=== PATIENT | female | born 1960 | race Caucasian/White ===

== ENCOUNTER 2016-05-14 13:28 | Emergency (ER) | payer MEDICARE ==
[2016-04-19 17:05] VITALS: BMI 28.5
[~2016-05-14 13:28] MED LIST: ADVAIR 500/501 DISK INH; ALDACTONE25 MG PO; BUMEX2 MG PO; CARAFATE1 G/10 ML PO; CARDIZEM CD180 MG PO; COLACE100 MG PO; COREG12.5 MG PO; COUMADIN2 MG PO; COUMADIN7.5 MG PO; COZAAR25 MG PO; HUMULIN R100 U/ML SC; HYDROCODONE-APA1 TAB PO; K-DUR20 MEQ PO; LANOXIN125 MCG PO; LASIX40 MG PO; LEVAQUIN750 MG PO; LISINOPRIL2.5 MG PO; LISINOPRIL5 MG PO; LOVENOX80 MG/0.8 SC; MEDROL DOSE PACK4 MG PO; METOLAZONE2.5 MG PO; MIRALAX17 GM PO; MORPHINE SULFAT15 M4 PO; MS CONTIN15 MG PO; PROAIR HFA8.5 GM INH; RISPERDAL1 MG PO; SINGULAIR10 MG PO; SYNTHROID25 MCG PO; SYNTHROID50 MCG PO; TOPROL XL200 MG PO; TOPROL XL25 MG PO; TOPROL XL50 MG PO; XANAX1 MG PO; ZESTRIL10 MG PO; ZOCOR20 MG PO; Zaroxolyn PO
[2016-05-14 15:02] LABS: BASOPHILS 0.5 % (0.0-2.0); EOSINOPHILS 5.3 % (0-7); HEMATOCRIT 45.8 % (36.0-48.0); HEMOGLOBIN 15.1 g/dL (12-16); IMMATURE GRANULOCYTES 0.3 % (0-5); LYMPHOCYTES 20.8 % (15-50); MCH 31.3 pg (26.0-34.0); MCV 94.8 fL (80.0-100.0); MEAN PLATELET VOLUME 11.2 fL (7.4-10.4); MONOCYTES 13.4 % (2-11); NEUTROPHILS 59.7 % (40-80); PLATELET COUNT 313 10x3/uL (130-400); RBC 4.83 10x6/uL (4.00-5.40); RDW 14.5 % (11.5-14.5); WBC 12.9 10x3/uL (4.8-10.8)
[2016-05-14 15:36] LABS: ALBUMIN 3.9 g/dL (3.4-5.0); ANION GAP 14.2 mmol/L (8-16); BILIRUBIN - TOTAL 0.39 mg/dL (0.2-1.3); CALCIUM 9.8 mg/dL (8.5-10.1); CARBON DIOXIDE 27.1 mmol/L (21.0-32.0); CREATININE - SERUM 0.9 mg/dL (0.6-1.3); POTASSIUM - SERUM 4.3 mmol/L (3.5-5.1); PROTEIN - SERUM 8.7 g/dL (6.4-8.2)
[2016-05-14 15:38] LABS: APTT 31.8 SECONDS (22.8-39.4); INR 1.2 (0.85-1.17)
[2016-05-14 17:34] LABS: AMYLASE - SERUM 47 U/L (25-115); LIPASE 205 U/L (73-393)
[2016-05-14 20:03] LABS: APPEARANCE CLEAR (CLEAR); COLOR YELLOW (YELLOW); SPECIFIC GRAVITY 1.015 (1.005-1.020)
[2016-05-14 20:04] LABS: BILIRUBIN NEGATIVE (NEGATIVE); GLUCOSE NEGATIVE (NEGATIVE); KETONE NEGATIVE (NEGATIVE); LEUKOCYTE ESTERASE NEGATIVE (NEGATIVE); NITRITE NEGATIVE (NEGATIVE); PROTEIN NEGATIVE (NEGATIVE); UROBILINOGEN NORMAL (NORMAL)
[2016-05-14 20:15] LABS: UDS - AMPHET POSITIVE QUAL (NEGATIVE); UDS - BARB NEGATIVE QUAL (NEGATIVE); UDS - BENZO POSITIVE QUAL (NEGATIVE); UDS - COCAINE NEGATIVE QUAL (NEGATIVE); UDS - METH NEGATIVE QUAL (NEGATIVE); UDS - OPIATE POSITIVE QUAL (NEGATIVE); UDS - PCP NEGATIVE QUAL (NEGATIVE); UDS - THC NEGATIVE QUAL (NEGATIVE)
== END 2016-05-14 22:08 | disposition home or self-care (01) ==
LOC: D.ER 13:28
PROVIDERS: Family Medicine
DX: R10.9 Unspecified abdominal pain (principal); I50.9 Heart failure, unspecified; I10 Essential (primary) hypertension; E23.2 Diabetes insipidus; Z95.0 Presence of cardiac pacemaker

== ENCOUNTER 2016-05-23 09:13 | Day surgery (SDC) | payer MEDICARE ==
[~2016-05-23] VITALS: Ht 170.2 cm; Wt 81.8 kg
[2016-05-23] MEDS ORDERED: COUMADIN7.5 MG (09:57)
[2016-05-23] MEDS ORDERED: COUMADIN10 MG (09:57)
[2016-05-23] MEDS ORDERED: LOVENOX INJ100 MG/ML SC (09:57)
[2016-05-23] MEDS ORDERED: TIROSINT100 MCG PO (10:00)
[2016-05-23] MEDS ORDERED: GLUCOTROL ER2.5 MG PO (10:02)
[2016-05-23 10:07] VITALS: BP 165/86; Ht 170.2 cm; Wt 81.8 kg
[2016-05-23] MEDS ORDERED: GLYBURIDE2.5 MG (10:13)
[2016-05-23 10:27] LABS: HEMATOCRIT 44.4 % (36.0-48.0); HEMOGLOBIN 14.8 g/dL (12-16); MCH 31.4 pg (26.0-34.0); MCHC 33.3 g/dL (31.0-37.0); MCV 94.1 fL (80.0-100.0); MEAN PLATELET VOLUME 11.7 fL (7.4-10.4); RBC 4.72 10x6/uL (4.00-5.40); RDW 14.4 % (11.5-14.5); WBC 13.5 10x3/uL (4.8-10.8)
[2016-05-23 10:37] LABS: APTT 52.3 SECONDS (22.8-39.4); INR 1.08 (0.85-1.17); PROTIME 13.9 SECONDS (11.6-15.0)
[2016-05-23 10:38] LABS: ANION GAP 12.4 mmol/L (8-16); CALCIUM 9.1 mg/dL (8.5-10.1); CARBON DIOXIDE 29.4 mmol/L (21.0-32.0); CREATININE - SERUM 0.9 mg/dL (0.6-1.3); POTASSIUM - SERUM 3.8 mmol/L (3.5-5.1)
--- NOTE | 2016-05-23 10:44 | NUR ---
1045 PATIENT COMPLAINS OF PAIN LOWER ABDOMEN AND BACK, GIVEN [id number] PO. NO ACUTE DISTRESS NOTED
--- NOTE | 2016-05-23 14:49 | NUR ---
1445 BACK FROM COLONOSCOPY. SLEEPY AND ROUSES. RESP EVEN AND NONLABORED. DENIES PAIN AND NAUSEA. PASSED SOME AIR.
--- NOTE | 2016-05-23 15:21 | NUR ---
1520 TOLERATED FULL LIQUIDS. UP TO THE BR WITH ASSISTANCE. VOIDED AND BACK TO BED.
--- NOTE | 2016-05-23 18:43 | NUR ---
1531 PORT FLUSHED WITH SALINE AND HEPARIN FLUSH DCD HOUSTON NEEDLE AND WENT OVER DISCHARGE INSTRUCTIONS AND VERBALLY UNDERSTANDS.
--- NOTE | 2016-05-23 18:44 | NUR ---
1550 RIDE HERE AND HOME VIA W/C WITH FRIEND.
--- NOTE | 2016-05-23 18:45 | NUR ---
1535 IV SITE OOZED PRESSURE APPLIED AND BLEEDING STOPPED.BANDAGE APPLIED TO LT CHEST SITE.
--- NOTE | 2016-07-04 11:24 | OP ---
PATIENT NAME: SAE BARBOSA MEDICAL RECORD: [id number] :62 LOCATION:[facility] ADMISSION DATE: SURGEON: KAREN TSE MD DATE OF OPERATION: 05/23/2016 PROCEDURE: Colonoscopy with polyp ablation. SCOPE: Olympus video colonoscope. MEDICATIONS: Per TIVA anesthesia. The reason for anesthesia is chronic obstructive pulmonary disease. The patient, I believe, continues to smoke, coronary artery disease with cardiac arrhythmias and congestive heart failure, diabetes mellitus, hypertension, liver disease, mitral valve prolapse with mitral regurgitation, pacemaker placement, use of Coumadin for as above, hypothyroidism. The patient will have a colonoscopy as she has been having some abdominal pain as well as nevin hematochezia. FINDINGS: Informed consent was given. The patient was made comfortable with the above medications. After reaching an adequate level of sedation by slow IV push, the patient was placed on her left side. The rectal exam revealed good sphincter tone, no fissures or fistulas were appreciated. No external skin tags were seen. The colonoscope was advanced to the cecum where the ileocecal valve and appendiceal orifice were identified. On withdrawal of the scope, mucosa was carefully inspected. The cecum was carefully explored and was found to be normal. On withdrawal of the scope, the patient had very mild left-sided diverticulosis without diverticulitis. She also had 1 cm polyp in the distal rectal area, which was ablated. On retroflexion and final withdrawal of the scope, hemorrhoids were observed, which is the cause of the patient's bleeding, exacerbated by blood thinners. Of note, she has significant adhesions due to multiple abdominal surgeries adding to the difficulty of this procedure. The scope was then withdrawn. IMPRESSION: 1. Adhesions adding to the difficulty of this procedure. 2. Distal rectal polyp ablated. 3. Very mild left-sided diverticulosis without diverticulitis. 4. Internal hemorrhoids, which is the cause of the patient's bleeding. PLAN: 1. No anti-inflammatory drugs please for 14 days. 2. High fiber diet. 3. The patient should go ahead and resume her Coumadin. 4. Of note, if the hemorrhoids are bothering the patient, she can buy some low-dose luxi-ous-tjblaib cortisone cream and apply b.i.d. TRANSINT:[id number] Voice Confirmation ID: [id number] DOCUMENT ID: [id number] OPERATIVE REPORT [id number] SAE BARBOSA BRENDA MD at 1124 CC: FABIAN VIERA MD and SMITH VALLEJO MD [id number] DICTATION DATE: 05/23/16 1438 METAL DEALER: 05/23/16 1503 [facility] 05/23/16 [place] [id number] [place] [id number]
== END 2016-05-23 15:50 | disposition home or self-care (01) ==
LOC: D.OPS 09:13
PROVIDERS: Anesthesiology
DX: K62.1 Rectal polyp (principal); K57.30 Diverticulosis of large intestine without perforation or abscess without bleeding; K64.8 Other hemorrhoids; J44.9 Chronic obstructive pulmonary disease, unspecified; F17.200 Nicotine dependence, unspecified, uncomplicated; I25.10 Atherosclerotic heart disease of native coronary artery without angina pectoris; I11.0 Hypertensive heart disease with heart failure; I50.9 Heart failure, unspecified; E11.9 Type 2 diabetes mellitus without complications; E03.9 Hypothyroidism, unspecified; K76.9 Liver disease, unspecified; I34.1 Nonrheumatic mitral (valve) prolapse; I34.0 Nonrheumatic mitral (valve) insufficiency; Z95.0 Presence of cardiac pacemaker; Z79.01 Long term (current) use of anticoagulants; Z79.899 Other long term (current) drug therapy

== ENCOUNTER → 2016-06-08 12:39 | Outpatient (CLI) | payer MEDICARE ==
[2016-05-23 10:07] VITALS: BMI 28.2
[~2016-06-08 12:39] MED LIST changes: +COUMADIN10 MG; +COUMADIN7.5 MG; +GLUCOTROL ER2.5 MG PO; +GLYBURIDE2.5 MG; +LOVENOX INJ100 MG/ML SC; +LOVENOX30 MG/0.3 SC; +TIROSINT100 MCG PO
[2016-06-08 13:21] LABS: INR 2.87 (0.85-1.17); PROTIME 30.3 SECONDS (11.6-15.0)
== END | disposition home or self-care (01) ==
LOC: D.LAB 09:30
PROVIDERS: Internal Medicine Interventional Cardiology
DX: Z95.2 Presence of prosthetic heart valve (principal)

== ENCOUNTER 2016-07-06 13:52 | Outpatient (CLI) | payer MEDICARE ==
[~2016-07-06] VITALS: Ht 171.4 cm; Wt 81.4 kg
[~2016-07-06 13:52] MED LIST changes: -LOVENOX30 MG/0.3 SC
[2016-07-06 14:26] VITALS: BP 152/75; Ht 171.4 cm; Wt 81.4 kg
--- NOTE | 2016-07-06 14:40 | NUR ---
1415 HERE FOR PORT FLUSH RT CHEST INFUSAPORT ACCESSED BY LORNA NAVA WITH STERILE TECHNIQU 1 STICK 20 GAUGE 1 INCH. GOOD BLOOD RETURN FLUSHED WITH SALINE AND HEPARIN FLUSH THAN CATHETER REMOVED TIP INTACT, BANDAID APPLIED.
--- NOTE | 2016-07-06 14:41 | NUR ---
1440 DISCHARGED TO HOME.
--- NOTE | 2016-07-06 14:54 | NUR ---
1445 AMBULATED SELF TO HOME.
== END 2016-07-06 14:45 | disposition home or self-care (01) ==
LOC: D.OPS 13:52
DX: Z09 Encounter for follow-up examination after completed treatment for conditions other than malignant neoplasm (principal); I73.9 Peripheral vascular disease, unspecified

== ENCOUNTER 2016-07-23 06:32 | Day surgery (SDC) | payer MEDICARE ==
[~2016-07-23] VITALS: Ht 171.4 cm; Wt 81.8 kg
[2016-07-23] MEDS ORDERED: LOVENOX30 MG/0.3 SC (07:43)
[2016-07-23 07:46] VITALS: BP 125/84; Ht 171.4 cm; Wt 81.8 kg
[2016-07-23 07:54] LABS: BASOPHILS 0.8 % (0.0-2.0); EOSINOPHILS 4.6 % (0-7); HEMATOCRIT 43.2 % (36.0-48.0); HEMOGLOBIN 14.6 g/dL (12-16); IMMATURE GRANULOCYTES 0.4 % (0-5); LYMPHOCYTES 28.9 % (15-50); MCHC 33.8 g/dL (31.0-37.0); MCV 91.7 fL (80.0-100.0); MEAN PLATELET VOLUME 11.8 fL (7.4-10.4); NEUTROPHILS 52.3 % (40-80); PLATELET COUNT 328 10x3/uL (130-400); RBC 4.71 10x6/uL (4.00-5.40); WBC 15.1 10x3/uL (4.8-10.8)
[2016-07-23 08:02] LABS: ANION GAP 12.8 mmol/L (8-16); APTT 37.8 SECONDS (22.8-39.4); CARBON DIOXIDE 28.8 mmol/L (21.0-32.0); CREATININE - SERUM 1.2 mg/dL (0.6-1.3); INR 1.04 (0.85-1.17); POTASSIUM - SERUM 3.6 mmol/L (3.5-5.1); PROTIME 13.5 SECONDS (11.6-15.0)
--- NOTE | 2016-07-23 09:43 | NUR ---
RIGHT SUBCLAVIAN PORT FLUSHED WITH SALINE AND HEPARIN PER PROTOCOL, HOUSTON NEEDLE DC'D FROM PORT, BANDAID PLACED. PATIENT DRESSED IN PERSONAL CLOTHING, AWAITING TRANSPORTATION FOR DC, PATIENT STATES A FRIEND IS ON HER WAY
--- NOTE | 2016-07-23 10:05 | NUR ---
PATIENT DISCHARGED HOME VIA WHEELCHAIR TO PRIVATE VEHICLE WITH FRIEND WITH DC ISNTRUCTIONS IN HAND
--- NOTE | 2016-07-31 12:04 | OP ---
PATIENT NAME: SEA BARBOSA MEDICAL RECORD: [id number] :62 LOCATION:D.OPS ADMISSION DATE: SURGEON: REBECA SWEENEY DO DATE OF OPERATION: 07/23/2016 PROCEDURE: EGD with biopsies. ENDOSCOPIST: Rebeca Sweeney DO. SCOPE: Olympus video gastroscope. MEDICATIONS: Propofol 200 mg and lidocaine 100 mg IV per anesthesia. INDICATIONS FOR PROCEDURE: Dysphagia and history of gastric ulcers. FINDINGS: Informed consent was given. The patient was made comfortable with the above medications. After the patient was adequately sedated, she was placed on the left side. The olympus video gastroscope was placed through the mouth under direct visualization and advanced to the second portion of the duodenum. The upper, middle and distal thirds of the esophagus appeared normal. At the GE junction, there was some mild LA class A reflux induced esophagitis. Biopsies were taken of this esophagitis as there is a questionable history of Rodas's esophagus. The scope was then advanced into the stomach and retroflexed to view the cardia where there was a diminutive sliding hiatal hernia present. Scope was then advanced down to the antrum and prepyloric region where there was evidence of gastritis with a few erosions and streaky erythematous sites. Random biopsies were taken and sent for histology. Scope was advanced through the pylorus into the duodenum where there was evidence of duodenitis involving the bulb and second portion of the duodenum. Multiple random biopsies were taken and sent for histology. Scope was then withdrawn back into the stomach and up to the esophagus where the GE junction was looked at closely again. There was no evidence of stenosis or stricture. No dilatation was performed. The scope was withdrawn from the patient. The patient tolerated the procedure well and there were no complications. ESTIMATED BLOOD LOSS: Less than 5 cc. IMPRESSION: 1. LA class A reflux induced esophagitis at the GE junction. Biopsies taken. 2. Gastritis of the antrum and prepyloric region. Biopsies taken. 3. Duodenitis of the bulb and second portion of the duodenum. Biopsies taken. 4. Diminutive sliding hiatal hernia. PLAN AND RECOMMENDATIONS: 1. Continue Carafate as she has previously been taking. 2. Add Protonix 40 mg daily times 30 days. 3. Follow up in the GI clinic in 4-6 weeks. 4. If her dysphagia continues, would recommend a manometry study to evaluate for other causes of dysphagia outside of strictures and stenoses. TRANSINT:[id number] Voice Confirmation ID: [id number] DOCUMENT ID: [id number] OPERATIVE REPORT [id number] SAE BARBOSA NATHAN A DO at 1204 CC: [id number] DICTATION DATE: 07/23/16 0832 CORE EXTRUDER: 07/23/[address] [facility] 07/23/[address] [address]
== END 2016-07-23 10:05 | disposition home or self-care (01) ==
LOC: D.OPS 06:32
PROVIDERS: Anesthesiology
DX: R13.10 Dysphagia, unspecified (principal); K21.0 Gastro-esophageal reflux disease with esophagitis; K44.9 Diaphragmatic hernia without obstruction or gangrene; K29.80 Duodenitis without bleeding; K29.50 Unspecified chronic gastritis without bleeding

== ENCOUNTER 2016-08-30 11:19 | Outpatient (CLI) | payer MEDICARE ==
[~2016-08-30 11:19] MED LIST changes: +LOVENOX30 MG/0.3 SC
== END 2016-08-30 11:35 | disposition home or self-care (01) ==
LOC: D.OPS 11:19
DX: Z45.2 Encounter for adjustment and management of vascular access device (principal); Z53.9 Procedure and treatment not carried out, unspecified reason; I73.9 Peripheral vascular disease, unspecified

== ENCOUNTER → 2016-09-06 08:36 | Outpatient (CLI) | payer MEDICARE ==
[2016-09-06 11:32] VITALS: BP 136/66; Ht 171.4 cm
--- NOTE | 2016-09-06 11:36 | NUR ---
1110-UNSUCCESSFUL ATTEMPT TO ACCESS PORT TIMES TWO. PORT ACCESSED BY TIFFANIE TONG RN, BRISK BLOOD RETURN, FLUSH COMPLETE WITH SALINE AND HEPARIN. TOLERATED PROCEDURE WELL.
--- NOTE | 2016-09-10 14:16 | EC ---
PATIENT:SAE BARBOSA DATE OF SERVICE: 09/06/16 SEX: F MEDICAL RECORD: [id number] DATE OF : 62 LOCATION:D.RT AGE OF PATIENT: 56 ADMISSION DATE: 09/06/16 REFERRING PHYSICIAN: INTERPRETING PHYSICIAN: BLOSSOM PAPPAS M.D. ECHOCARDIOGRAM REPORT ECHO CHARGES 4 ECHO COMPLETE CLINICAL DIAGNOSIS: PULMONARY HTN HX OF MVR,AFIB,PACER,CHF,COPD ECHOCARDIOGRAPHIC MEASUREMENTS (adult normal given) AC root (d.<3.7cm) 3.9 LV Septum d (<1.2 cm> 1.4 Valve Excursion 1.8 LV Septum (systole) 1.6 Left Atria (s.<4.0cm> 4.5 LVPW d(<1.2cm) 1.6 RV (d.<2.3cm) 4.3 LVPW (sytole) 1.8 LV diastole(<5.6CM) 5.8 MV E-F(>70mm/sec) LV systole 3.8 LVOT Diameter 1.5 MV exc.(>10mm) 1.9 Est.ejection fraction (50-75%) Pericardial Effusion N DOPPLER: LVIT A 159 E LA RVSP 48 LVOT 117 AOP1/2T 432 Asc. Ao 232 RVOT 105 RA PA 126 AV Gradient Peak 21.52 AV Mean 10.10 AV Area 1.1 MV Gradient Peak 18.34 MV Mean 5.03 MV Area COMMENTS: Pipe Buffer: Tyson ROSA Photographic Equipment Mechanic:2 Dr. Pappas TAPE# PACS DATE OF SERVICE: 09/06/2016 Echocardiogram Report REFERRING PHYSICIAN: Catalino Gil MD. INDICATION: Pulmonary hypertension. DESCRIPTION: Left ventricle demonstrates left ventricular hypertrophy. No regional wall motion abnormalities are seen. Estimated ejection fraction is in ECHOCARDIOGRAM REPORT [id number] SAE BARBOSA SAMUEL the order of 50% to 55%. Mitral valve is mechanical. There is no evidence of any stenosis or regurgitation. Left atrium is moderately dilated. The aortic valve leaflets are thickened. Peak gradient across the valve is 21 mmHg. There is mild to moderate insufficiency seen as well. Right ventricle is moderately dilated. Tricuspid valve is structurally normal. There is mild to moderate regurgitation seen. Right ventricular systolic pressure is elevated at 48 mmHg. There is no pericardial effusion seen. IMPRESSION: 1. Left ventricular hypertrophy with preserved ejection of 50% to 55%. 2. Normally functioning prosthetic mitral valve. 3. Mild aortic stenosis with mild to moderate insufficiency. 4. Mild tricuspid regurgitation with elevated pulmonary pressures. TRANSINT:[id number] Voice Confirmation ID: [id number] DOCUMENT ID: [id number] BLOSSOM PAPPAS M.D. at 1416 CC: [id number] DICTATION DATE: 09/07/16 1016 BAGGAGE CLERK: 09/08/16 0208 [facility] CLI 09/06/16 [place] [id number] [place] [address]
== END | disposition home or self-care (01) ==
LOC: D.RT 08:36
DX: I73.9 Peripheral vascular disease, unspecified (principal); Z45.2 Encounter for adjustment and management of vascular access device

== ENCOUNTER 2016-10-29 10:57 | Outpatient (CLI) | payer MEDICARE ==
--- NOTE | 2016-10-29 14:26 | NUR ---
1255-PATIENT PRESENTS TO DESK. NEEDS THIS DONE QUICKLY SHE HAS ANOTHER APPOINTMENT. 1300-RIGHT INFUSAPORT ACCESSED WITH 20G 1 INCH HOUSTON NEEDLE WITH MUCH DIFFICULTY. BLOOD TINGED RETURN. PORT FEELS LIKE IT HAS TURNED SIDEWAYS UPON PALPATION. RECOMMEND FOLLOW UP WITH SURGEON. 1320-DISCHARGE INSTRUCTIONS REVIEWED AND D/C AMBULATORY PER REQUEST.
== END 2016-10-29 13:20 | disposition home or self-care (01) ==
LOC: D.OPS 10:57 → D.CT 10:57 → D.OPS 13:20
DX: Z45.2 Encounter for adjustment and management of vascular access device (principal); R94.2 Abnormal results of pulmonary function studies

== ENCOUNTER 2016-12-17 15:14 | Observation (INO) | payer MEDICARE, MEDICAID ==
[~2016-12-17] VITALS: Ht 171.4 cm; Wt 89.9 kg
--- NOTE | ~2016-12-17 | HEMODYNAMI ---
PATIENT:SAE BARBOSA MEDICAL RECORD: [id number] : 62 LOCATION:[address] ADMISSION DATE: 12/17/16 Generatedon:12/18/20168:32 Patient name: SAE BARBOSA Patient #: [id number] SSN: DO B: 1960 Date of study: 12/18/2016 Page: Of Hemodynamic Procedure Report Patient Data Patient Demographics Procedure consent was obtained First Name: SAE Gender: Female Last Name: CHELSEY : 1960 [facility] Initial: SAMUEL Age: 56 year(s) Patient #: [id number] Race: Additional ID: [id number] Contact details [address]: [address] [place] [address] State: [place] City: [place] Zip code: [address] Past Medical History Allergies Allergen Reaction Date Comments Reported Penicillins 06/10/2014 Admission Admission Data Admission Date: 12/17/2016 Admission Time: 15:14 Room #: [facility] Procedure Procedure Types Cath Procedure Diagnostic Procedure Cardioversion Procedure Description Procedure Date Procedure Date: 12/18/2016 Procedure Start Time: 8:25 Procedure End Time: 8:30 Procedure Staff Name Function Jovan Linder MD Performing Physician Margareth Chowdhury RN Nurse Hernesto Porras RT Monitor Krystina Figueroa RT Seo Intern Procedure Medications Medication Administration Route Dosage Oxygen NC 6 l/min Refer to Anesthesia Notes for Sedation Medications Hemodynamics Rest Heart Rate: 74 (bpm) Snapshots Pre Cath Intra NCS Post Cath Vital Signs Time Heart Resp SPO2 NIBP (mmHg) Rhythm Pain Sedation Rate (ipm) (%) Status Level (bpm) 7:58:27 71 16 95 133/66(104) NSR 0 (11) 10(A) , No pain 8:02:43 69 19 96 121/68(102) NSR 0 (11) 10(A) , No pain 8:06:52 73 20 98 127/68(84) NSR 0 (11) 10(A) , No pain 8:17:46 73 19 99 136/72(95) NSR 0 (11) 10(A) , No pain 8:21:55 69 19 98 136/65(95) NSR 0 (11) 10(A) , No pain 8:26:10 70 18 98 132/68(94) NSR 0 (11) 10(A) , No pain 8:30:22 71 9 94 106/62(82) NSR 0 (11) 10(A) , No pain Medications Time Medication Route Dose Verified Delivered Reason Notes Effectivene ss by by 8:02:19 Oxygen NC 6 Jovan Aldana Per l/min Kailash Linder MD physician 8:02:25 Refer to Jovan Aldana Anesthesia Kailash Linder MD Notes for Sedation Medications Procedure Log Time Note 7:56:23 Diagnostic Cath Status : Elective 7:56:45 Time tracking: Regular hours 7:56:50 Plan of Care:Hemodynamics will remain stable., Cardiac rhythm will remain stable., Comfort level will be maintained., Respiratory function will remain adequate., Patient/ family verbilizes understanding of procedure., Procedure tolerated without complication., Recovers from procedure without complications.. 7:57:06 Patient received from Med II to CCL 2 Alert and oriented. Tansferred to table in Supine position. 7:57:10 Warm blankets applied, and ginger hugger turned on for patient comfort. 7:57:10 Correct patient and procedure confirmed by team. 7:57:13 Signed procedure consent form obtained from patient. 7:57:14 ECG and BP/O2 sat monitors applied to patient. 7:57:23 Vital chart was started 7:57:24 Baseline sample Acquired. 7:57:58 Rhythm: atrial fibrillation 7:58:03 Full Disclosure recording started 7:58:53 ----Pre-sedation anethsthesia assessment.---- 7:59:05 Previous problem with sedation/anesthesia? No ? 7:59:07 Snore? Yes 7:59:09 Sleep apnea? No 7:59:14 Deviated septum? No 7:59:16 Opens mouth fully? Yes 7:59:19 Sticks out tongue? Yes 8:02:19 Oxygen 6 l/min NC was administered by Jovan Linder MD; Per physician; 8:02:25 Refer to Anesthesia Notes for Sedation Medications was administered by Jovan Linder MD; ; 8:04:27 Alarms reviewed by Chito Gamboa 8:05:58 Quick combo pads placed on patients chest and back. 8:06:22 DR. RICHARD ARRIVED AND IN ROOM 8:07:15 DR. LINDER IN ROOM 1 8:24:43 Physician arrived 8:24:43 --------ALL STOP TIME OUT------ 8:24:44 Final Timeout: patient, procedure, and site verified with staff and physician. All members of the team are in agreement. 8:25:04 Physical assessment completed. ASA score P 2 - A patient with mild systemic disease as per Jovan Linder MD. 8:25:10 Sedation plan: TIVA Propofol 8:25:17 Procedure started. 8:27:10 CHARGED TO 250 8:27:12 Shock delivered. 8:28:30 Patient cardioverted to sinus rhythm . 8:28:56 Procedure ended.(Physican Out) 8:30:10 Post-procedure physical assessment completed. ASA score P 2 - A patient with mild systemic disease as per Jovan Linder MD. 8:30:43 Procedure ended. 8:30:43 Full Disclosure recording stopped 8:30:48 Vital chart was stopped 8:31:18 End room use (Document Last) Signature Audit Butler Stage Time Signature Unsigned Intra-Procedure 12/18/2016 Hernesto Porras 8:32:15 AM RT(R) (CV) Signatures Monitor : Hernesto Porras RT Signature : Date : Time : [facility] [address] [facility] [place] [address]
[~2016-12-17 15:14] MED LIST changes: -COUMADIN7.5 MG; -GLYBURIDE2.5 MG; +GLYBURIDE2.5 MG PO
--- NOTE | 2016-12-17 15:48 | NUR ---
RECIVED PT FROM DR GUTIÉRREZ OFFICE TO ROOM 2125. RN FOR ADMIT ASSESSMENT.
[2016-12-17 16:00] VITALS: BP 171/85
--- NOTE | 2016-12-17 16:01 | NUR ---
IP ACCESSED WITH 1" NEEDLE. LINE IS PATENT. BLOOD RETURN NOTED.
[2016-12-17 16:02] VITALS: BP 171/84; BMI 30.6
[2016-12-17 16:45] LABS: BASOPHILS 0.3 % (0-2); EOSINOPHILS 3.7 % (0-7); HEMATOCRIT 37.4 % (36.0-48.0); HEMOGLOBIN 12.1 g/dL (12-16); IMMATURE GRANULOCYTES 0.3 % (0-5); LYMPHOCYTES 22.6 % (15-50); MCH 29.7 pg (26.0-34.0); MCHC 32.4 g/dL (31.0-37.0); MCV 91.9 fL (80.0-100.0); MEAN PLATELET VOLUME 11.1 fL (7.4-10.4); MONOCYTES 12.9 % (2-11); NEUTROPHILS 60.2 % (40-80); PLATELET COUNT 350 10x3/uL (130-400); RBC 4.07 10x6/uL (4.00-5.40); RDW 14.9 % (11.5-14.5); WBC 14.1 10x3/uL (4.8-10.8)
[2016-12-17 17:00] LABS: INR 1.94 (0.85-1.17); PROTIME 22.2 SECONDS (11.6-15.0)
--- NOTE | 2016-12-17 17:49 | NUR ---
WITHOUT DISTRESS NOTED AT THIS TIME.
[2016-12-17 17:50] LABS: ANION GAP 12.9 mmol/L (8-16); CARBON DIOXIDE 26.1 mmol/L (21.0-32.0)
[2016-12-17 19:00] VITALS: BP 137/73
--- NOTE | 2016-12-17 19:24 | NUR ---
PT SITTING IN BED. PT STATES " I THINK IM GOING TO OVERDOSE. I TOOK MY ZANAX AND NORCO AT THE SAME TIME, AND I NEVER DO THAT." INSTRUCTED PT TO CALL IF SHE STARTS FEELING ANY WORSE. WILL CONTINUE TO MONITOR
[2016-12-18] VITALS: BP 121/68
--- NOTE | 2016-12-18 03:28 | NUR ---
PT RESTING IN BED WITH EYES CLOSED. RESPS EVEN/NONLABORED. CARDIZEM DRIP AT 5ML/HR INFUSING. CURRENTLY CAF 70'S. WILL CONTINUE TO MONITOR.
[2016-12-18 04:00] VITALS: BP 111/67
--- NOTE | 2016-12-18 07:20 | NUR ---
ASSESSMENT DONE. DENIES NEEDS
--- NOTE | 2016-12-18 07:42 | NUR ---
TO CONFERENCE ASSISTANT PER BED
--- NOTE | 2016-12-18 08:55 | NUR ---
RETURN FROM GRADES 9 THROUGH 12 TEACHER. CARDIOVERSION DONE
--- NOTE | 2016-12-18 10:10 | NUR ---
RESTS IN BED WITHOUT NEEDS VOICED. CALL LIGHT IN REACH. WILL MONITOR.
[2016-12-18 12:04] VITALS: BP 95/55
[2016-12-18 13:06] VITALS: Ht 171.4 cm; Wt 89.9 kg
[2016-12-18 15:59] VITALS: BP 114/57
--- NOTE | 2016-12-18 17:57 | NUR ---
WITHOUT CHANGES OR DISTRESS NOTED AT THIS TIME. DENIES NEEDS.
--- NOTE | 2016-12-18 19:47 | NUR ---
RECEIVED REPORT, WILL ASSUME CARE OF PT, SITTING ON SIDE OF BED, ASKING FOR ANIXTY MEDS, WILL GIVE ORDER, CALL LIGHT IN REACH, WILL CONTINUE PLAN OF CARE
[2016-12-18 20:00] VITALS: BP 116/51
--- NOTE | 2016-12-19 00:50 | NUR ---
PT RESITNG IN BED WITH NO DISTRESS. CPOC.
[2016-12-19 04:00] VITALS: BP 105/49
--- NOTE | 2016-12-19 07:43 | NUR ---
PT SITTING UP IN BED SLEEPING NO S/S DISTRESS NOTED RR EVEN AND UNLABORED. WILL CONT TO MONITOR
[2016-12-19 08:00] VITALS: BP 127/61
--- NOTE | 2016-12-19 10:34 | NUR ---
REMOVED PT PORT ACCESS THIS AM. FLOOR POLICY TO RESITE EVERY SATURDAY. REMOVED WITH TIP INTACT. WENT TO RESITE PORT ACCESS AND UNSUCCESSFULL. CALLED [employer] FOR ANOTHER ACCESS KIT AND WILL ASK ANOTHER NURSE ON [facility] TO ATTEMPT.
[2016-12-19] MEDS ORDERED: BETAPACE 80 MG80 MG PO (11:22)
--- NOTE | 2016-12-19 11:24 | NUR ---
DR VALLEJO IS DC PT HOME. WILL NOT REACCESS PORT.
[2016-12-19] MEDS ORDERED: NITROSTAT0.4 MG SL (11:27)
[2016-12-19 11:46] VITALS: BP 116/58
--- NOTE | 2016-12-19 12:01 | NUR ---
WENT OVER DC PAPERWORK WITH PT PT VERBALIZES UNDERSTANDING DC TELE AND RETURNED TO PHOTOENGRAVING PRINTER. PT WAS GIVEN SCRIPTS FOR MEDICATIONS. PT IS WAITING ON HER FRIEND TO PICK HER UP FROM [facility]. PT TO ALERT STAFF WHEN SHE IS HERE.
--- NOTE | 2016-12-19 16:42 | NUR ---
RIDE HERE DC HOME VIA .
--- NOTE | 2016-12-21 09:41 | OP ---
PATIENT NAME: SAE BARBOSA MEDICAL RECORD: [id number] :62 LOCATION:D.M2 D.2125 ADMISSION DATE:12/17/16 SURGEON: SMITH VALLEJO MD DATE OF OPERATION: 12/18/2016 PROCEDURE: DC cardioversion. INDICATION: Atrial fibrillation. PROCEDURE IN DETAIL: IV conscious sedation was performed per anesthesia. Continuous heart rate, O2 saturation, blood pressure monitoring were all undertaken, all of which remains stable. She received 1 shock restoring sinus rhythm. OVERALL IMPRESSION: Successful direct current cardioversion from atrial fibrillation to sinus rhythm. TRANSINT:[id number] Voice Confirmation ID: [id number] DOCUMENT ID: [id number] SMITH VALLEJO MD at 0941 CC: [id number] DICTATION DATE: 12/18/16 0843 STENOTYPIST: 12/18/16 1046 DIS IN 12/19/16 [facility] [address] [place] [address]
--- NOTE | 2016-12-21 09:41 | DS ---
PATIENT:SAE BARBOSA :62 MEDICAL RECORD: [id number] DISCHARGE SUMMARY ADMISSION DATE: 12/17/16 DISCHARGE DATE: 12/19/16 DISCHARGE DIAGNOSES: 1. Shortness of breath. 2. Atrial fibrillation. 3. Chronic obstructive pulmonary disease. 4. Coronary artery disease. 5. Hypertension. 6. Hyperlipidemia. HOSPITAL COURSE: Mrs. Barbosa does not present with anginal symptomatology. She presents with shortness of breath, found to be in atrial fibrillation with rapid ventricular response, started on sotalol therapy, underwent DC cardioversion as well as IV diuresis. Her congestive heart failure symptomatology cleared. She was discharged home with discontinuing her digoxin; the addition of sotalol to her medical regimen. We will follow up with [facility] in 1 month. TRANSINT:[id number] Voice Confirmation ID: [id number] DOCUMENT ID: [id number] SMITH VALLEJO MD at 0941 CC: [id number] DICTATION DATE: 12/19/16 1057 SIGNAL REPAIRER: 12/19/163 DIS IN 12/19/16 [facility] [address] [place] [address]
== END 2016-12-19 16:43 | disposition home or self-care (01) ==
LOC: OBSVTIME 15:14 → D.M2 15:14
PROVIDERS: ADMIT Internal Medicine Interventional Cardiology
DX: I48.91 Unspecified atrial fibrillation (principal); I25.10 Atherosclerotic heart disease of native coronary artery without angina pectoris; J44.9 Chronic obstructive pulmonary disease, unspecified; E78.5 Hyperlipidemia, unspecified; I10 Essential (primary) hypertension

== ENCOUNTER 2017-02-06 07:29 | Outpatient (CLI) | payer MEDICARE, MEDICAID ==
--- NOTE | ~2017-02-06 | HEMODYNAMI ---
PATIENT:SAE BARBOSA MEDICAL RECORD: [id number] : 62 LOCATION:[facility] ADMISSION DATE: 02/06/17 Generatedon:02/06/20179:21 Patient name: SAE BARBOSA Patient #: [id number] SSN: DO B: 1960 Date of study: 02/06/2017 Page: Of Hemodynamic Procedure Report Patient Data Patient Demographics Procedure consent was obtained First Name: SAE Gender: Female Last Name: CHELSEY : 1960 [facility] Initial: SAMUEL Age: 56 year(s) Patient #: [id number] Race: Additional ID: [id number] Contact details [address]: [address] [place] [address] State: [place] City: [place] Zip code: [address] Past Medical History Allergies Allergen Reaction Date Comments Reported Penicillins 06/10/2014 Other allergy 02/06/2017 N Admission Admission Data Admission Date: 02/06/2017 Admission Time: 7:29 Height (in.): 68 BSA: 2 (m2) Height (cm.): 172.72 BMI: 28.89 (kg/m2) Weight (lbs.): 190 Weight (kg.): 86.18 Lab Results Lab Result Date: 02/06/2017 Lab Result Time: 0:00 Biochemistry Name Units Result Min Max BUN mg/dl 30 --(----)-* 7 18 Creatinine mg/dl 1.2 --(---*)-- 0.6 1.3 Coagulation Name Units Result Min Max INR units 0.99 --(-*--)-- 0.85 1.17 PT sec 12.9 --(-*--)-- 11.6 15 Procedure Procedure Types Cath Procedure Diagnostic Procedure C Coronaries only Miscellaneous Procedures Moderate Sedation up to 15 minutes Procedure Description Procedure Date Procedure Date: 02/06/2017 Procedure Start Time: 9:07 Procedure End Time: 9:14 Procedure Staff Name Function Jovan Linder MD Performing Physician Andrez Castro RT Scrub Bradley Blanton RN Nurse Krystina Figueroa RT Monitor Procedure Data Cath Procedure Fluoroscopy Diagnostic fluoroscopy Total fluoroscopy Time: 0.9 time: 0.9 min min Diagnostic fluoroscopy Total fluoroscopy dose: 374 dose: 374 mGy mGy Contrast Material Contrast Material Type Amount (ml) Isovue 300 42 Entry Location Entry Primary Successful Side Size Upsize Upsize Entry Closure Succes sful Closure Location (Fr) 1 (Fr) 2 (Fr) Remarks Device Remarks Femoral Right 5 Fr Exoseal artery Estimated blood loss: 10 ml Diagnostic catheters Device Type Used For End Catheter Placement Cordis 5Fr JL 4.0 Procedure Catheter (MP) Cordis 5Fr 3DRC Catheter Procedure (MP) Procedure Complications No complications Procedure Medications Medication Administration Route Dosage Oxygen NC 2 l/min Heparin Flush Bag added to field 2 bags (1000units/500ml NS) 0.9% NaCl I.V. 100 ml/hr Fentanyl I.V. 100 mcg Versed I.V. 2 mg Fentanyl I.V. 50 mcg Versed I.V. 1 mg Fentanyl I.V. 50 mcg Versed I.V. 1 mg Hemodynamics Rest BSA: 2 (m2) O2 Consumption: Estimated: 218.02 (ml/min) O2 Consumption indexed: Estimated:109.01 (ml/min/m) Heart Rate: 104 (bpm) Snapshots Pre Cath Intra NCS Post Cath Vital Signs Time Heart Resp SPO2 NIBP (mmHg) Rhythm Pain Sedation Rate (ipm) (%) Status Level (bpm) 8:49:43 94 16 92 120/79(97) NSR 0 (11) 10(A) , No pain 8:53:46 107 16 92 116/87(104) NSR 0 (11) 10(A) , No pain 8:57:58 112 18 89 115/66(86) NSR 0 (11) 10(A) , No pain 9:02:02 111 18 90 109/73(95) NSR 0 (11) 10(A) , No pain 9:06:08 102 18 92 116/77(94) NSR 0 (11) 10(A) , No pain 9:10:14 105 18 94 108/75(89) NSR 0 (11) 9(A) , No pain 9:14:21 98 17 92 123/70(108) NSR 0 (11) 9(A) , No pain 9:16:22 87 17 94 117/86(105) NSR 0 (11) 9(A) , No pain Medications Time Medication Route Dose Verified Delivered Reason Notes Effect iveness by by 9:07:03 Oxygen NC 2 Jovan Bradley Per l/min Kailash Blanton RN physician 9:07:11 Heparin Flush added 2 Jovan Bradley used for Bag to bags Kailash Blanton attorney (1000units/500ml field NS) 9:07:19 0.9% NaCl I.V. 100 Jovan Bradley Per ml/hr Kailash Blanton RN physician 9:07:28 Fentanyl I.V. 100 Jovan Bradley for roshan Blanton RN sedation 9:07:34 Versed I.V. 2 mg Jovan Bradley for Kailash Blanton RN sedation 9:09:38 Fentanyl I.V. 50 Jovan Bradley for roshan Blanton RN sedation 9:09:43 Versed I.V. 1 mg Jovan Batistay for Kailash Blanton RN sedation 9:11:07 Fentanyl I.V. 50 Jovan Bradley for roshan Blanton RN sedation 9:11:11 Versed I.V. 1 mg Jovan Bradley for Kailash Blanton RN sedation Procedure Log Time Note 8:30:39 Andrez Castro RT(R) sent for patient. Start room use. 8:45:50 Patient Weight : 86.18 lbs 8:45:56 Patient Height : 172.72 inches 8:47:01 Lab Result : BUN 30 mg/dl 8:47:01 Lab Result : PT 12.9 sec 8:47:01 Lab Result : Creatinine 1.2 mg/dl 8:47:01 Lab Result : INR 0.99 units 8:47:37 Diagnostic Cath status Elective 8:47:41 Time tracking: Regular hours 8:47:47 Plan of Care:Hemodynamics will remain stable., Cardiac rhythm will remain stable., Comfort level will be maintained., Respiratory function will remain adequate., Patient/ family verbilizes understanding of procedure., Procedure tolerated without complication., Recovers from procedure without complications.. 8:48:32 Patient received from Pre/Post Procedure Room to [facility] 2 Alert and oriented. Tansferred to table in Supine position. 8:48:34 Warm blankets applied, and ginger hugger turned on for patient comfort. 8:48:38 Correct patient and procedure confirmed by team. 8:48:41 Signed procedure consent form obtained from patient. 8:48:42 ECG and BP/O2 sat monitors applied to patient. 8:48:43 Vital chart was started 8:48:45 Baseline sample Acquired. 8:48:52 Rhythm: sinus rhythm 8:48:53 Full Disclosure recording started 8:49:07 H&P Date Dictated: 01/28/2017 Within 30 days and on chart., H&P Addendum completed by physician on day of procedure. (MUST COMPLETE FOR ALL OUTPATIENTS). 8:49:09 Pre-procedure instructions explained to patient. 8:49:18 Family in waiting room. 8:49:20 Patient NPO since Midnight. 8:49:41 Patient allergic to Other allergyPCN 8:49:45 Is the patient allergic to Iodine/contrast media? No. 8:49:52 Was the patient premedicated? Yes 8:49:54 Is patient on blood thinner?Yes 8:49:59 ACC The patient was administered the following blood thiners within the last 24 hours: ACCLovenox 8:50:35 Patient diabetic? Yes. 8:50:37 If diabetic: On Metformin? No 8:50:41 Snore? Yes 8:50:43 Sleep apnea? Yes 8:50:51 Airway obstruction? Yes COPD 8:50:54 Dentures? No ? 8:51:00 Patient pain scale 0/10 ?. 8:51:12 IV patent on arrival in right forearm with 0.9% NaCl at KVO. 8:51:19 Lab results completed and on chart. 8:51:24 Right groin area was prepped with chlora-prep and draped in sterile fashion 8:51:25 Alarms reviewed by R. N. 8:51:26 Sharps counted by scrub and verified by R.N. 9:02:33 Physician paged 9:06:28 Physician arrived 9::29 --------ALL STOP TIME OUT------ 9:06:29 Final Timeout: patient, procedure, and site verified with staff and physician. All members of the team are in agreement. 9:06:31 Right groin site verified by team. 9:06:35 Physical assessment completed. ASA score P 2 - A patient with mild systemic disease as per Jovan Linder MD. 9:06:39 Sedation plan: IV Moderate Sedation Versed, Fentanyl 9:06:41 Zero performed for pressure channel P1 9:06:58 Use device set Femoral Dx 9:07:01 Procedure started. 9:07:03 Oxygen 2 l/min NC was administered by Bradley Blanton RN; Per physician; 9:07:11 Heparin Flush Bag (1000units/500ml NS) 2 bags added to field was administered by Bradley Blanton RN; used for procedure; 9:07:19 0.9% NaCl 100 ml/hr I.V. was administered by Bradley Blanton RN; Per physician; 9:07:22 Local anesthetic to right femoral artery with Lidocaine 2% by Jovan Linder MD.INITIAL ACCESS ONLY 9:07:28 Fentanyl 100 mcg I.V. was administered by Bradley Blanton RN; for sedation; 9:07:34 Versed 2 mg I.V. was administered by Bradley Blanton RN; for sedation; 9:09:38 Fentanyl 50 mcg I.V. was administered by Bradley Blanton RN; for sedation; 9:09:40 A 5 Fr sheath was inserted into the Right Femoral artery 9::43 Versed 1 mg I.V. was administered by Bradley Blanton RN; for sedation; 9:09:43 Acist Syringe opened to sterile field. 9:09:43 Bag Decanter opened to sterile field. 9:09:44 Medline Cath Pack opened to sterile field. 9:09:44 Terumo 5Fr [place] Sheath opened to sterile field. 9:09:45 St Martin 260cm J .035 wire opened to sterile field. 9:09:46 Acist Hand Control opened to sterile field. 9:09:46 Acist Manifold opened to sterile field. 9:09:47 Diagnostic Infinity 5Fr Multipack catheter opened to sterile field. 9:09:48 Tegaderm 4 x 4 opened to sterile field. 9:09:58 A Cordis 5Fr JL 4.0 Catheter (MP) was advanced over the wire and used for Procedure. 9:10:02 LCA angiography performed. 9:11:07 Fentanyl 50 mcg I.V. was administered by Bradley Blanton RN; for sedation; 9:11:11 Versed 1 mg I.V. was administered by Bradley Blanton RN; for sedation; 9:11:12 Catheter removed. 9:11:22 A Cordis 5Fr 3DRC Catheter (MP) was advanced over the wire and used for Procedure. 9:11:36 RCA angiography performed. 9:11:55 Catheter removed. 9:12:20 Cordis 5Fr Exoseal opened to sterile field. 9:12:37 Sheath removed intact; hemostasis achieved with Exoseal to the Right Femoral artery. 9:12:40 Procedure ended.(Physican Out) 9:13:23 Fluoroscopy time 00.90 minutes. 9:13:30 Fluoroscopy dose: 374 mGy 9:13:30 Flurop Dose total: 374 9:13:36 Contrast amount:Isovue 300 42ml. 9:13:38 Sharps counted by scrub and verified by R.N. 9:13:39 Insertion/operative site no bleeding no hematoma. 9:13:42 Post-op/insertion site Right Femoral artery dressed using a 4 x 4 and Tegaderm. 9:13:45 Post right femoral artery:stable 9:13:53 Post-procedure physical assessment completed. ASA score P 2 - A patient with mild systemic disease as per Jovan Linder MD. 9:13:56 Post procedure rhythm: unchanged. 9:13:59 Estimated blood loss: 10 ml 9:14:00 Post procedure instruction explained to patient.Patient verbalizes understanding. 9:14:06 Procedure and supply charges have been captured, reviewed, submitted and are correct. 9:14:35 Procedure Complication : No complications 9:14:37 Vital chart was stopped 9:14:37 See physician's report for complete and final results. 9:14:43 Report given to Pre/Post Procedure Room. 9:14:46 Patient transfered to Pre/Post Procedure Room with Stretcher. 9:14:49 Procedure ended. 9:14:49 Full Disclosure recording stopped 9:14:53 End room use (Document Last) 9:17:23 Procedure type changed to Cath procedure, Diagnostic procedure, LHC, Coronaries only, Miscellaneous Procedures, Moderate Sedation up to 15 minutes Device Usage Item Name Manufacture Quantity Catalog Hospital Part Current Minimal Lo t# / Number Charge Number Stock Stock Serial# Code Acist Acist 1 [id number] [id number] 540653 286434 20 Syringe Medical Systems Inc Bag Microtek 1 2002S 041817 79231 458358 5 Decanter Medical Inc. Medline Cardinal 1 [id number] 485045 83076 135166 5 Cath Pack Health Terumo 5Fr Terumo 1 [id number] 601472 368004 127596 [address] [place] [address] [facility] Martin 1 817373 882296 415648 162813 30 260cm J .035 wire Acist Hand Acist 1 63230 860303 412017 510035 5 Control Medical Systems Inc Acist Acist 1 62740 749796 744072 479883 5 Manifold Medical Systems Inc Diagnostic Cardinal 1 [id number] 268526 66912 489480 30 Gamma 2 Robotics Health 5Fr Multipack catheter Tegaderm 4 3M 1 1626W 758159 966962 390710 5 x 4 Cordis 5Fr Cardinal 1 705255 5 JL 4.0 Health Catheter (MP) Cordis 5Fr Cardinal 1 [id number] 5 3DRC Health Catheter (MP) Cordis 5Fr Cardinal 1 EX500 997506 421285 590572 10 Core Audio Technology Signature Audit [place] Stage Time Signature Unsigned Intra-Procedure 02/06/2017 Krystina Figueroa 9:20:50 AM RT(R) Signatures Monitor : Krystina Figueroa Signature : RT Date : Time : [place] [id number] [facility] [place] [address]
[~2017-02-06 07:29] MED LIST changes: +BETAPACE 80 MG80 MG PO; +NITROSTAT0.4 MG SL
[2017-02-06] MEDS ORDERED: LOVENOX80 MG/0.8 SC (07:50)
[2017-02-06] MEDS ORDERED: METOLAZONE2.5 MG PO (07:52)
[2017-02-06] MEDS ORDERED: LEVOTHYROXINE100 MCG PO (07:52)
[2017-02-06] MEDS ORDERED: EFFEXOR XR150 MG PO (07:53)
[2017-02-06] MEDS ORDERED: SOMA350 MG PO (07:53)
[2017-02-06 08:02] VITALS: BP 170/73; BMI 29.3
[2017-02-06 08:08] LABS: BASOPHILS 0.6 % (0-2); EOSINOPHILS 5.1 % (0-7); HEMATOCRIT 45.5 % (36.0-48.0); HEMOGLOBIN 15.3 g/dL (12-16); IMMATURE GRANULOCYTES 0.2 % (0-5); LYMPHOCYTES 30.7 % (15-50); MCH 29.7 pg (26.0-34.0); MCHC 33.6 g/dL (31.0-37.0); MCV 88.3 fL (80.0-100.0); MEAN PLATELET VOLUME 11.3 fL (7.4-10.4); MONOCYTES 15.6 % (2-11); NEUTROPHILS 47.8 % (40-80); PLATELET COUNT 286 10x3/uL (130-400); RBC 5.15 10x6/uL (4.00-5.40); RDW 14.7 % (11.5-14.5); WBC 12.1 10x3/uL (4.8-10.8)
[2017-02-06 08:22] LABS: ANION GAP 8.9 mmol/L (8-16); CALCIUM 9.9 mg/dL (8.5-10.1); CREATININE - SERUM 1.2 mg/dL (0.6-1.3); POTASSIUM - SERUM 3.9 mmol/L (3.5-5.1)
[2017-02-06 08:36] LABS: INR 0.99 (0.85-1.17); PROTIME 12.9 SECONDS (11.6-15.0)
--- NOTE | 2017-02-06 09:45 | NUR ---
2L NC, NO RESP DISTRESS NOTED. RIGHT GROIN 5F EXOSEAL CDI, NO BLEEDING OR HEMATOMA NOTED. NO C/O PAIN OR NAUSEA. VSS. INSTRUCTED PT TO KEEP HEAD FLAT ON PILLOW AND RIGHT LEG STRAIGHT. CALL LIGHT WITHIN REACH.
--- NOTE | 2017-02-06 10:42 | NUR ---
1030 ASSUMED CARE, REPORT RECEIVED FROM GILBERTO ANGEL RN. PATIENT RESTING, LAYING FLAT. ALL VITALS WNL. NSR RATE 87 WNO C/O CHEST PAIN. PULSES PALP X 4. R GROIN 5F EXOSEAL C/D/I WITH NO HEMATOMA OR BLEEDING.
--- NOTE | 2017-02-06 10:58 | NUR ---
HOB ELEVATED, ROOM AIR. ALL VITALS WNL. EATING TURKEY SANDWICH WILL MONITOR GROIN FOR BLEEDING.
--- NOTE | 2017-02-06 11:33 | NUR ---
REMOVED ACCESS FROM R PORT, COVERED WITH 2X2 AND TEGADERM. DISCUSSED D/C INSTRUCTIONS WITH PATIENT. DR. VALLEJO AT BEDSIDE...PER YONI SEE IN CLINIC IN 3-4 MONTHS. APPT MADE FOR JUNE. WHEELED OUT VIA WHEELCHAIR BY CATH TEAM.
--- NOTE | 2017-02-08 13:09 | OP ---
PATIENT NAME: SAE BARBOSA MEDICAL RECORD: [id number] :62 LOCATION:D.CAT ADMISSION DATE: SURGEON: SMITH VALLEJO MD DATE OF OPERATION: 02/06/2017 PROCEDURES: Selective coronary angiography. INDICATION: Chest pain compatible with angina. PROCEDURE IN DETAIL: After informed consent was obtained and after detailed explanation of risks, benefits as well as alternative therapies, the patient elected to proceed with angiogram. The right femoral area was prepped and draped in normal sterile fashion. The right femoral artery was cannulated via modified Seldinger technique with placement of 5-Albanian sheath. All catheters exchanged through this sheath. FINDINGS: There was no left ventriculogram performed secondary to mechanical aortic valve. SELECTIVE CORONARY ANGIOGRAPHY: Left main, left anterior descending, left circumflex, right coronary artery are all smooth-walled vessels with no angiographic evidence of coronary artery disease. OVERALL IMPRESSION: No significant coronary artery disease is present. Chest pain is noncardiac in etiology. TRANSINT:[id number] Voice Confirmation ID: [id number] DOCUMENT ID: [id number] SMITH VALLEJO MD at 1309 CC: [id number] DICTATION DATE: 02/06/17 0923 NIGHT CLUB MANAGER: 02/06/17 1137 DEP CLI 02/06/17 [place] [id number] [place] [address]
== END 2017-02-06 11:34 | disposition home or self-care (01) ==
LOC: D.CATH 07:29
PROVIDERS: Internal Medicine Interventional Cardiology
DX: I05.9 Rheumatic mitral valve disease, unspecified (principal); I48.0 Paroxysmal atrial fibrillation; I10 Essential (primary) hypertension; Z95.0 Presence of cardiac pacemaker; R94.30 Abnormal result of cardiovascular function study, unspecified; R06.02 Shortness of breath; F17.200 Nicotine dependence, unspecified, uncomplicated; Z01.812 Encounter for preprocedural laboratory examination

== ENCOUNTER 2017-03-27 10:59 | Outpatient (CLI) | payer MEDICARE, MEDICAID ==
[~2017-03-27 10:59] MED LIST changes: +EFFEXOR XR150 MG PO; +LEVOTHYROXINE100 MCG PO; +SOMA350 MG PO
[2017-03-27 11:59] VITALS: Ht 171.4 cm
== END 2017-03-27 12:15 ==
LOC: D.OPS 10:59
DX: I73.9 Peripheral vascular disease, unspecified (principal)

== ENCOUNTER 2017-06-24 13:16 | Outpatient (CLI) | payer MEDICARE, MEDICAID ==
[~2017-06-24] VITALS: Ht 177.8 cm; Wt 86.4 kg
[2017-06-24 15:09] VITALS: Ht 177.8 cm; Wt 86.4 kg
== END 2017-06-24 15:15 | disposition home or self-care (01) ==
LOC: D.MAMMO 13:16
DX: Z12.31 Encounter for screening mammogram for malignant neoplasm of breast (principal)

== ENCOUNTER → 2017-07-17 14:59 | Outpatient (CLI) | payer MEDICARE, MEDICAID ==
[2017-06-24 15:09] VITALS: BMI 27.3
[~2017-07-17 14:59] MED LIST changes: +COUMADIN5 MG PO; +LANTUS INSULIN10 ML SC
== END | disposition home or self-care (01) ==
LOC: D.CT 14:59
DX: R94.2 Abnormal results of pulmonary function studies (principal)

== ENCOUNTER 2017-08-19 05:33 | Day surgery (SDC) | payer MEDICARE, MEDICAID ==
[~2017-08-19] VITALS: Ht 177.8 cm; Wt 86.4 kg
--- NOTE | ~2017-08-19 | OP ---
PATIENT NAME: SAE BARBOSA MEDICAL RECORD: [id number] :62 LOCATION:[facility] ADMISSION DATE: SURGEON: REBECA KENNEDY DO DATE OF OPERATION: 08/19/2017 PROCEDURE: EGD with biopsies. 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 This was indicated on her last EGD on July 232016. She has also had continued dysphagia, which sounds to be oropharyngeal in nature. SCOPE: Olympus video gastroscope. MEDICATIONS: Propofol IV per anesthesia. Please see anesthesia report. ESTIMATED BLOOD LOSS: Minimal. COMPLICATIONS: None. FINDINGS: Informed consent was given. The patient was made comfortable with the above medication. After reaching an adequate level of sedation by slow IV push, the patient was placed on her left side. The endoscope was advanced through the mouth under direct visualization to the second portion of the duodenum. The upper, middle, and lower thirds of the esophagus appeared normal. At the GE junction, there was some evidence of LA class A reflux-induced esophagitis. Due to the history of incipient Rodas's mucosa on her last EGD, some cold forceps biopsies were taken around the GE junction Z line. The endoscope was advanced beyond the GE junction into the stomach and retroflexed to view the cardia, where there was a small sliding hiatal hernia present. Throughout the entire stomach, there were patchy areas of gastritis with appearances consistent with some atrophy, a coarsened appearance, erythema, and some granularity. Random biopsies were taken to submit for histology and to rule out H. pylori. There were a few very superficial gastric ulcers which looked like they could be related to medications. The endoscope was advanced beyond the pylorus into the duodenum where the bulb, first portion, and second portion of the duodenum appeared normal. The endoscope was then withdrawn from the patient. The patient tolerated the procedure well and there were no complications. On a side note, I did also biopsy her mid esophagus to rule out the presence of eosinophilic esophagitis due to her continued complaints of dysphagia. IMPRESSION: 1. LA class A reflux induced esophagitis, cold forceps biopsies taken to exclude Rodas esophagus. 2. Small sliding hiatal hernia. 3. Gastritis. 4. Few superficial gastric ulcers without bleeding stigmata. PLAN AND RECOMMENDATIONS: 1. Discharge home when recovery parameters are met. 2. Continue current medications including Protonix 40 mg daily and Carafate p.r.n. Could also consider adding Zantac or Pepcid in the evening for another mechanism of action and better around the clock coverage. 3. Recommend modified barium swallow regarding the continued oropharyngeal dysphagia. If this is normal, an esophageal manometry study could be OPERATIVE REPORT [id number] SAE BARBOSA considered. 4. Due to the patient's lower digestive symptom complaints including constipation, gas, and bloating, I will provide her with a prescription for Linzess 145 mcg daily. 5. Follow up in GI clinic as needed. We will follow up on biopsy results and results of oropharyngeal dysphagia, modified barium swallow study. TRANSINT:[id number] Voice Confirmation ID: [id number] DOCUMENT ID: [id number] REBECA KENNEDY DO at 1524 CC: [id number] DICTATION DATE: 08/19/17817 DIRECTOR OF DISTANCE LEARNING: 08/19/[address] [facility] 08/19/17 [place] [address] [place] [address]
[~2017-08-19 05:33] MED LIST changes: -COUMADIN5 MG PO; -LANTUS INSULIN10 ML SC
[2017-08-19 06:12] LABS: BASOPHILS 0.7 % (0-2); EOSINOPHILS 4.9 % (0-7); HEMATOCRIT 47.4 % (36.0-48.0); HEMOGLOBIN 16.1 g/dL (12-16); IMMATURE GRANULOCYTES 0.3 % (0-5); MCH 31.4 pg (26.0-34.0); MCV 92.4 fL (80.0-100.0); MONOCYTES 15.3 % (2-11); NEUTROPHILS 55.8 % (40-80); PLATELET COUNT 281 10x3/uL (130-400); RBC 5.13 10x6/uL (4.00-5.40); RDW 14.4 % (11.5-14.5); WBC 15.8 10x3/uL (4.8-10.8)
[2017-08-19] MEDS ORDERED: COUMADIN5 MG PO (06:18)
[2017-08-19 06:19] LABS: INR 1.08 (0.85-1.17); PROTIME 13.6 SECONDS (11.6-15.0)
[2017-08-19 06:20] LABS: APTT 36.8 SECONDS (22.8-39.4)
[2017-08-19 06:23] LABS: ANION GAP 11.9 mmol/L (8-16); CALCIUM 10.1 mg/dL (8.5-10.1); CARBON DIOXIDE 31.9 mmol/L (21.0-32.0); CREATININE - SERUM 1.6 mg/dL (0.6-1.3); POTASSIUM - SERUM 3.8 mmol/L (3.5-5.1)
[2017-08-19] MEDS ORDERED: LANTUS INSULIN10 ML SC (06:31)
[2017-08-19] MEDS ORDERED: BETAPACE 80 MG80 MG PO (06:32)
[2017-08-19 06:46] VITALS: BP 106/61; Ht 177.8 cm; Wt 86.4 kg
== END 2017-08-19 09:20 | disposition home or self-care (01) ==
LOC: D.OPS 05:33
PROVIDERS: Anesthesiology
DX: R13.10 Dysphagia, unspecified (principal); K21.0 Gastro-esophageal reflux disease with esophagitis; K29.70 Gastritis, unspecified, without bleeding; K44.9 Diaphragmatic hernia without obstruction or gangrene; K25.9 Gastric ulcer, unspecified as acute or chronic, without hemorrhage or perforation; J45.909 Unspecified asthma, uncomplicated; E11.9 Type 2 diabetes mellitus without complications; E03.9 Hypothyroidism, unspecified; J44.9 Chronic obstructive pulmonary disease, unspecified; Z01.812 Encounter for preprocedural laboratory examination

== ENCOUNTER 2018-01-07 12:05 | Outpatient (CLI) | payer MEDICARE, MEDICAID ==
[~2018-01-07] VITALS: Ht 171.4 cm; Wt 85.0 kg
[~2018-01-07 12:05] MED LIST changes: +COUMADIN5 MG PO; +LANTUS INSULIN10 ML SC
[2018-01-07 12:49] VITALS: BP 129/82; Ht 171.4 cm; Wt 85.0 kg
== END 2018-01-07 13:15 | disposition home or self-care (01) ==
LOC: D.OPS 12:05
DX: Z45.2 Encounter for adjustment and management of vascular access device (principal); Z01.812 Encounter for preprocedural laboratory examination

== ENCOUNTER → 2018-02-05 13:59 | Outpatient (CLI) | payer MEDICARE, MEDICAID ==
[2018-01-07 12:49] VITALS: BMI 28.9
== END | disposition home or self-care (01) ==
LOC: D.CT 13:59
DX: R94.2 Abnormal results of pulmonary function studies (principal)

== ENCOUNTER → 2018-06-12 11:30 | Day surgery (SDC) | payer MEDICARE, MEDICAID ==
[2018-01-07 12:49] VITALS: BMI 28.9
== END | disposition home or self-care (01) ==
LOC: D.OPS 11:30
DX: I87.2 Venous insufficiency (chronic) (peripheral) (principal); Z01.812 Encounter for preprocedural laboratory examination

== ENCOUNTER 2018-10-10 12:35 | Outpatient (CLI) | payer MEDICARE, MEDICAID ==
[2018-10-10 13:05] VITALS: BP 111/69; BMI 27.5
== END 2018-10-10 13:21 | disposition home or self-care (01) ==
LOC: D.OPS 12:35
PROVIDERS: ATTEND Family Medicine
DX: I87.9 Disorder of vein, unspecified (principal)

== ENCOUNTER 2019-07-03 09:00 | Outpatient (CLI) | payer MEDICARE, MEDICAID | END 2019-07-03 10:00 | disposition home or self-care (01) | LOC: D.MAMMO 09:00 | PROVIDERS: ATTEND Family Medicine | DX: Z12.31 Encounter for screening mammogram for malignant neoplasm of breast (principal) ==

== ENCOUNTER 2019-07-06 23:42 | Emergency (ER) | payer MEDICARE, MEDICAID ==
[2018-10-10 13:05] VITALS: Ht 171.4 cm; Wt 81.8 kg
[~2019-07-06] VITALS: Ht 171.4 cm; Wt 81.8 kg
[2019-07-07 00:24] LABS: APTT 27.9 SECONDS (22.8-39.4); INR 1.13 (0.85-1.17); PROTIME 14.5 SECONDS (11.6-15.0)
[2019-07-07 00:27] LABS: BASOPHILS 0.5 % (0-2); EOSINOPHILS 6.7 % (0-7); HEMATOCRIT 37.2 % (36.0-48.0); IMMATURE GRANULOCYTES 0.4 % (0-5); LYMPHOCYTES 23.6 % (15-50); MCH 29.7 pg (26.0-34.0); MCHC 32.3 g/dL (31.0-37.0); MCV 92.1 fL (80.0-100.0); MEAN PLATELET VOLUME 11.2 fL (7.4-10.4); MONOCYTES 13.5 % (2-11); NEUTROPHILS 55.3 % (40-80); PLATELET COUNT 325 10x3/uL (130-400); RBC 4.04 10x6/uL (4.00-5.40); RDW 15.9 % (11.5-14.5)
[2019-07-07 00:30] LABS: CALC OSMOLALITY 276 mosm/kg (275-300); CARBON DIOXIDE 30.2 mmol/L (21.0-32.0); CHLORIDE - SERUM 100 mmol/L (98-107); CREATININE - SERUM 1.2 mg/dL (0.6-1.3); GLUCOSE 201 mg/dL (74-106); POTASSIUM - SERUM 3.8 mmol/L (3.5-5.1); SODIUM 134 mmol/L (136-145); UREA NITROGEN 22 mg/dL (7-18); eGFR NON AFRICAN AMERICAN 49 mL/min (90-120)
[2019-07-07 00:40] LABS: ALBUMIN 3.1 g/dL (3.4-5.0); ALKALINE PHOSPHATASE 103 U/L (30-120); ALT (SGPT) 31 U/L (10-68); BILIRUBIN - TOTAL 0.21 mg/dL (0.2-1.3); CKMB 1.1 U/L (0.0-3.6); CREATINE KINASE 106 UL (21-215); MAGNESIUM - SERUM 1.7 mg/dL (1.8-2.4); PROTEIN - SERUM 7.4 g/dL (6.4-8.2); TROPONIN-I 0.039 ng/mL (0.000-0.060)
[2019-07-07 04:50] VITALS: BP 105/60
== END 2019-07-07 04:50 | disposition home or self-care (01) ==
LOC: D.ER 23:42
PROVIDERS: Family Medicine
DX: S20.219A Contusion of unspecified front wall of thorax, initial encounter (principal); W01.198A Fall on same level from slipping, tripping and stumbling with subsequent striking against other object, initial encounter; Y93.9 Activity, unspecified; Y92.9 Unspecified place or not applicable; J44.9 Chronic obstructive pulmonary disease, unspecified; Z95.0 Presence of cardiac pacemaker; I10 Essential (primary) hypertension; I48.91 Unspecified atrial fibrillation; Z95.1 Presence of aortocoronary bypass graft; E11.40 Type 2 diabetes mellitus with diabetic neuropathy, unspecified; E07.9 Disorder of thyroid, unspecified; Z72.0 Tobacco use; Z79.4 Long term (current) use of insulin; Z79.84 Long term (current) use of oral hypoglycemic drugs; K21.9 Gastro-esophageal reflux disease without esophagitis

== ENCOUNTER 2019-10-22 18:21 | Inpatient (IN) | payer MEDICAID ==
[~2019-10-22] VITALS: Ht 171.4 cm; Wt 81.4 kg
--- NOTE | 2019-10-22 18:40 | NUR ---
URINE SENT TO THE LAB.
[2019-10-22 19:04] LABS: BILIRUBIN NEGATIVE (NEGATIVE); GLUCOSE 250 mg/dL (NEGATIVE); KETONE NEGATIVE (NEGATIVE); NITRITE NEGATIVE (NEGATIVE); UROBILINOGEN NORMAL (NORMAL)
--- NOTE | 2019-10-22 19:05 | NUR ---
REPORT TO ERNESTO AMES.
[2019-10-22 19:41] LABS: HEMATOCRIT 41.6 % (36.0-48.0); HEMOGLOBIN 13.3 g/dL (12-16); MCV 93.7 fL (80.0-100.0); MEAN PLATELET VOLUME 11.6 fL (7.4-10.4); PLATELET COUNT 270 10x3/uL (130-400); RBC 4.44 10x6/uL (4.00-5.40); WBC 21.5 10x3/uL (4.8-10.8)
[2019-10-22 19:49] LABS: CALC OSMOLALITY 277 mosm/kg (275-300); CALCIUM 9.2 mg/dL (8.5-10.1); CARBON DIOXIDE 31.2 mmol/L (21.0-32.0); CHLORIDE - SERUM 99 mmol/L (98-107); CREATININE - SERUM 1.6 mg/dL (0.6-1.3); GLUCOSE 227 mg/dL (74-106); POTASSIUM - SERUM 3.9 mmol/L (3.5-5.1); SODIUM 134 mmol/L (136-145); UREA NITROGEN 22 mg/dL (7-18); eGFR NON AFRICAN AMERICAN 35 mL/min (90-120)
[2019-10-22 19:57] LABS: ALBUMIN 3.2 g/dL (3.4-5.0); ALKALINE PHOSPHATASE 92 U/L (30-120); ALT (SGPT) 39 U/L (10-68); AMYLASE - SERUM 48 U/L (25-115); BILIRUBIN - TOTAL 0.43 mg/dL (0.2-1.3); LIPASE 307 U/L (73-393); PROTEIN - SERUM 7.8 g/dL (6.4-8.2)
[2019-10-22 20:00] VITALS: BP 122/59
[2019-10-22 20:06] LABS: TROPONIN-I < 0.017 ng/mL (0.000-0.060)
[2019-10-22 20:07] LABS: EOSINOPHILS 2 % (0-7); LYMPHOCYTES 13 % (15-50); MONOCYTES 10 % (2-11); NEUTROPHILS 75 % (40-80); PLATELET ESTIMATE NORMAL
[2019-10-22 21:25] VITALS: BP 129/76
--- NOTE | 2019-10-22 22:05 | NUR ---
EXTREME ITCHING AFTER ROCEPHIN STARTED STOPPED LINE FLUSHED EDP NOTIFIED AND BENADRYL GIVEN
--- NOTE | 2019-10-22 22:33 | NUR ---
ADDED ROCEPHIN TO ALLERGY LIST
[2019-10-22 23:36] VITALS: BP 88/42; BMI 27.6
[2019-10-23 03:00] VITALS: BP 100/50
[2019-10-23 04:00] VITALS: BP 95/56
[2019-10-23 06:07] LABS: BASOPHILS 0.1 % (0-2); EOSINOPHILS 1.5 % (0-7); HEMATOCRIT 40.8 % (36.0-48.0); IMMATURE GRANULOCYTES 0.4 % (0-5); LYMPHOCYTES 14.9 % (15-50); MCH 29.9 pg (26.0-34.0); MCHC 31.9 g/dL (31.0-37.0); MCV 93.8 fL (80.0-100.0); MEAN PLATELET VOLUME 12.7 fL (7.4-10.4); MONOCYTES 12.4 % (2-11); NEUTROPHILS 70.7 % (40-80); PLATELET COUNT 260 10x3/uL (130-400); RBC 4.35 10x6/uL (4.00-5.40); WBC 18.8 10x3/uL (4.8-10.8)
--- NOTE | 2019-10-23 06:25 | NUR ---
ASSESSED AT THE TIME OF ADMIT FROM THE ER. PT IS ALERT AND ORIENTED. SHE HAS BEEN VERY TIRED AND SLEPT MOST OF THE NIGHT AFTER HER ADMIT WAS DONE. WE DID DRAW BLOOD FROM HER PORT THIS MORNING. WHEN GIVING HER FLAGYL DURING THE NIGHT SHE MONITORED WELL DUE TO HER REACTION TO ROCEPHIN IN THE ER.
[2019-10-23 06:37] LABS: ALBUMIN 2.8 g/dL (3.4-5.0); BILIRUBIN - TOTAL 0.47 mg/dL (0.2-1.3); CALCIUM 8.8 mg/dL (8.5-10.1); CARBON DIOXIDE 32.7 mmol/L (21.0-32.0); CREATININE - SERUM 1.5 mg/dL (0.6-1.3); POTASSIUM - SERUM 3.7 mmol/L (3.5-5.1)
[2019-10-23 08:00] VITALS: BP 123/59
[2019-10-23 08:41] VITALS: Ht 171.4 cm; Wt 81.4 kg
[2019-10-23 10:11] LABS: INR 1.34 (0.85-1.17); PROTIME 16.4 SECONDS (11.6-15.0)
[2019-10-23 11:00] VITALS: BP 153/78
--- NOTE | 2019-10-23 11:00 | NUR ---
DR. MOORE CALLED AT THIS TIME D/T PT REQUEST SOME MEDICATION REC'D NEW ORDERS FOR BENDRYL 25 MG PO Q 6 HRS, NORCO 10/325 MG Q 6 HRS, AND S/S INSULIN PER ORDERS. ORDERS PROCESSED. C/L IN REACH AT BEDSIDE
--- NOTE | 2019-10-23 11:35 | NUR ---
PT WAS MEDICATED WITH NORCO AND BENDRYL AT THIS TIME FOR C/O PAIN AND ITCHING. C/L IN REACH AT BEDSIDE.
[2019-10-23 17:50] VITALS: BP 141/69
--- NOTE | 2019-10-23 19:00 | NUR ---
BEDSIDE REPORT RECEIVED AND CARE OF PT ASSUMED. PT SITTING UP ON SIDE OF BED WATCHING TV. RIGHT IP PATENT WITH NS INFUSING AT KVO. WILL MONITOR FOR NEEDS.
[2019-10-23 20:00] VITALS: BP 136/61
--- NOTE | 2019-10-23 20:30 | NUR ---
HS MEDICATIONS GIVEN TO INCLUDE BENADRYL AND NORCO PER REQUEST FOR SLEEP AND PAIN. FSBS 158 THIS CHECK REQUIRING COVERAGE WITH 4 UNITS OF INSULIN PER SLIDING SCALE.
--- NOTE | 2019-10-23 21:15 | NUR ---
PLACED O2 AT 2L VIA NC PER PT REQUEST...SHE WEARS O2 AT NIGHT AT HOME.
--- NOTE | 2019-10-23 22:20 | NUR ---
PT AMBULATING IN THE HALLWAY AT THIS TIME. HS SNACK GIVEN TO INCLUDE CHICKEN BROOTH.
[2019-10-24 00:01] VITALS: BP 140/67
[2019-10-24 05:16] VITALS: BP 90/44
[2019-10-24 05:22] LABS: BASOPHILS 0.2 % (0-2); HEMATOCRIT 40.5 % (36.0-48.0); HEMOGLOBIN 12.8 g/dL (12-16); IMMATURE GRANULOCYTES 0.2 % (0-5); LYMPHOCYTES 17.9 % (15-50); MCH 29.8 pg (26.0-34.0); MCHC 31.6 g/dL (31.0-37.0); MCV 94.2 fL (80.0-100.0); MEAN PLATELET VOLUME 11.6 fL (7.4-10.4); MONOCYTES 18.8 % (2-11); NEUTROPHILS 56.9 % (40-80); PLATELET COUNT 236 10x3/uL (130-400); RDW 16.3 % (11.5-14.5); WBC 13.1 10x3/uL (4.8-10.8)
[2019-10-24 05:34] LABS: INR 1.24 (0.85-1.17); PROTIME 15.5 SECONDS (11.6-15.0)
[2019-10-24 05:43] LABS: ANION GAP 4.3 mmol/L (8-16); BILIRUBIN - TOTAL 0.33 mg/dL (0.2-1.3); CALCIUM 8.5 mg/dL (8.5-10.1); CARBON DIOXIDE 34.4 mmol/L (21.0-32.0); CREATININE - SERUM 1.5 mg/dL (0.6-1.3); POTASSIUM - SERUM 3.7 mmol/L (3.5-5.1); PROTEIN - SERUM 7.2 g/dL (6.4-8.2)
--- NOTE | 2019-10-24 09:46 | NUR ---
PT ALERT X 4. BREATH SOUNDS CLEAR BILAT. PORT TO RIGHT CHEST, PATENT, DRESSING CDI. PT REPORTING PAIN OF 8/10, MEDICATED PER ORDERS, WILL CONTINUE TO MONITOR. BED LOW, CALL LIGHT IN REACH. NO OTHER NEEDS AT THIS TIME.
[2019-10-24 10:39] VITALS: BP 98/51
[2019-10-24 15:19] VITALS: BP 122/96
[2019-10-24] MEDS ORDERED: PHENERGAN25 M1 PO (16:22)
[2019-10-24 18:37] VITALS: BP 111/58
--- NOTE | 2019-10-24 19:00 | NUR ---
BEDSIDE REPORT RECEIVED AND CARE OF PT ASSUMED. PT SITTING UP IN BED WATCHING TV. RIGHT IP SALINE LOCKED.
[2019-10-24 20:21] VITALS: BP 122/59
--- NOTE | 2019-10-24 21:00 | NUR ---
HS MEDICATIONS GIVEN TO INCLUDE XANAX AND BENADRYL PO PER PRN ORDERS, PER REQUEST.
--- NOTE | 2019-10-24 23:56 | NUR ---
PT AMBULATING IN THE HALLWAYS WITH FAMILY MEMBER.
[2019-10-25 00:25] VITALS: BP 124/62
[2019-10-25 04:10] VITALS: BP 106/56
--- NOTE | 2019-10-25 08:18 | NUR ---
PATIENT UP AD RICKI. GETTING COFFEE. GOT LINENS AND ANOTHER PILLOW. WILL CHANGE OUT INFUSAPORT [place] NEEDLE TO SEE IF THAT WILL ALLOW US TO DRAW BLOOD. WCTM
[2019-10-25 08:44] VITALS: BP 120/62
--- NOTE | 2019-10-25 10:30 | NUR ---
PATIENT ACCESS INFURSAPORT REPLACED WITH A 20 G X 1.5 IN WITH Y SITE BECAUSE BLOOD DRAW WAS NOT POSSIBLE. PER PATIENT REQUEST. I ATTEMPTED AND WAS UNABLE. Jazmine QUINTANILLA RN WAS ABLE TO PLACE WITH MY ASSIST. STERILE TECHNIQUE MAINTAINED. THE PORT IS POSITIONAL TO BLOOD DRAW. NEEDS TO RAISE RIGHT ARM TO DRAW BLOOD. CL IN REACH. WCTM
[2019-10-25 11:17] LABS: HEMATOCRIT 40.6 % (36.0-48.0); HEMOGLOBIN 12.8 g/dL (12-16); LYMPHOCYTES 13.6 % (15-50); MCH 29.4 pg (26.0-34.0); MCHC 31.5 g/dL (31.0-37.0); MCV 93.1 fL (80.0-100.0); MEAN PLATELET VOLUME 11.8 fL (7.4-10.4); NEUTROPHILS 61.7 % (40-80); PLATELET COUNT 226 10x3/uL (130-400); RBC 4.36 10x6/uL (4.00-5.40)
[2019-10-25 11:23] LABS: INR 1.34 (0.85-1.17); PROTIME 16.5 SECONDS (11.6-15.0)
[2019-10-25 11:29] LABS: ALBUMIN 3.2 g/dL (3.4-5.0); ANION GAP 7.2 mmol/L (8-16); BILIRUBIN - TOTAL 0.22 mg/dL (0.2-1.3); CALCIUM 9.1 mg/dL (8.5-10.1); CARBON DIOXIDE 36.1 mmol/L (21.0-32.0); CREATININE - SERUM 1.7 mg/dL (0.6-1.3); POTASSIUM - SERUM 3.3 mmol/L (3.5-5.1); PROTEIN - SERUM 7.5 g/dL (6.4-8.2)
[2019-10-25 12:10] VITALS: BP 109/52
--- NOTE | 2019-10-25 15:32 | NUR ---
VISITOR IN ROOM
[2019-10-25 16:07] VITALS: BP 128/61
--- NOTE | 2019-10-25 19:00 | NUR ---
BEDSIDE REPORT RECEIVED AND CARE OF PT ASSUMED. PT SITTING UP ON SIDE OF BED WATCHING TV. RIGHT IP ACCESSED AND SALINE LOCKED. WILL MONITOR FOR NEEDS.
--- NOTE | 2019-10-25 20:20 | NUR ---
HS MEDICATIONS GIVEN TO INCLUDE BENADRYL AND XANAX PO PER REQUEST PER PRN ORDERS. FSBS 187 THIS CHECK REQUIRING COVERAGE WITH 4 UNITS OF INSULIN PER SLIDING SCALE. PT EATING A MIXED FRUIT DESSERT BROUGHT IN BY FAMILY MEMBER FOR HS SNACK.
[2019-10-25 20:25] VITALS: BP 112/58
[2019-10-26 05:10] VITALS: BP 116/67
[2019-10-26 05:19] LABS: INR 1.8 (0.85-1.17); PROTIME 20.7 SECONDS (11.6-15.0)
[2019-10-26 05:22] LABS: HEMATOCRIT 43.6 % (36.0-48.0); HEMOGLOBIN 13.7 g/dL (12-16); LYMPHOCYTES 16.9 % (15-50); MCH 29.3 pg (26.0-34.0); MCHC 31.4 g/dL (31.0-37.0); MCV 93.2 fL (80.0-100.0); MEAN PLATELET VOLUME 11.7 fL (7.4-10.4); NEUTROPHILS 58.3 % (40-80); PLATELET COUNT 255 10x3/uL (130-400); RBC 4.68 10x6/uL (4.00-5.40); RDW 15.6 % (11.5-14.5)
[2019-10-26 05:28] LABS: ALBUMIN 3.2 g/dL (3.4-5.0); ANION GAP 7.3 mmol/L (8-16); BILIRUBIN - TOTAL 0.2 mg/dL (0.2-1.3); CALCIUM 9.5 mg/dL (8.5-10.1); CARBON DIOXIDE 36.2 mmol/L (21.0-32.0); CREATININE - SERUM 1.7 mg/dL (0.6-1.3); POTASSIUM - SERUM 3.5 mmol/L (3.5-5.1); PROTEIN - SERUM 7.8 g/dL (6.4-8.2)
--- NOTE | 2019-10-26 06:38 | NUR ---
CALLED PHARMACY TO CHANGED BUMEX TIMES TO 5AM AND 5PM PER PT REQUEST SHE DOES NOT WANT TO TAKE AT BEDTIME DUE TO NIGHTTIME INCONTINENCE.
[2019-10-26 08:36] VITALS: BP 127/62
--- NOTE | 2019-10-26 10:30 | NUR ---
PATIENT UP AT SINK. DEMONSTRATED USING THE INCENTIVE SPIROMETER. NO NEEDS AT THIS TIME. TM
[2019-10-26 12:24] VITALS: BP 113/63
[2019-10-26 16:15] VITALS: BP 113/61
--- NOTE | 2019-10-26 19:00 | NUR ---
BEDSIDE REPORT RECEIVED AND CARE OF PT ASSUMED. PT SITTING IN BED WATCHING TV. RIGHT IP ACCESSED AND SALINE LOCKED. WILL MONITOR FOR NEEDS.
[2019-10-26 20:27] VITALS: BP 119/68
--- NOTE | 2019-10-26 20:54 | NUR ---
HS MEDICATIONS GIVEN TO INCLUDE BENADRYL, XANAX, AND NORCO PER REQUEST FOR SLEEP, ANXIETY AND PAIN. FSBS 201 THIS CHECK REQUIRING COVERAGE WITH 8 UNITS OF INSULIN PER SLIDING SCALE. WILL CONTINUE TO MONITOR FOR NEEDS.
--- NOTE | 2019-10-26 22:10 | NUR ---
SALINE LOCKED IP.
[2019-10-27 00:33] VITALS: BP 121/72
[2019-10-27 04:00] VITALS: BP 119/53
--- NOTE | 2019-10-27 05:09 | NUR ---
GINNY BLOOD FROM PORT FOR AM LABS AND DELIVERED TO PEDIATRIC PHYSICAL THERAPIST. FLUSHED WITH SALINE.
[2019-10-27 05:21] LABS: HEMATOCRIT 39.1 % (36.0-48.0); HEMOGLOBIN 12.6 g/dL (12-16); MCH 29.7 pg (26.0-34.0); MCHC 32.2 g/dL (31.0-37.0); MCV 92.2 fL (80.0-100.0); MEAN PLATELET VOLUME 11.7 fL (7.4-10.4); PLATELET COUNT 280 10x3/uL (130-400); RBC 4.24 10x6/uL (4.00-5.40); RDW 15.2 % (11.5-14.5); WBC 11.6 10x3/uL (4.8-10.8)
[2019-10-27 05:44] LABS: ALBUMIN 2.9 g/dL (3.4-5.0); ANION GAP 7.6 mmol/L (8-16); BILIRUBIN - TOTAL 0.17 mg/dL (0.2-1.3); CALCIUM 9.2 mg/dL (8.5-10.1); CARBON DIOXIDE 35.9 mmol/L (21.0-32.0); CREATININE - SERUM 1.8 mg/dL (0.6-1.3); POTASSIUM - SERUM 3.5 mmol/L (3.5-5.1); PROTEIN - SERUM 7.2 g/dL (6.4-8.2)
[2019-10-27 05:47] LABS: INR 2.32 (0.85-1.17); PROTIME 25.1 SECONDS (11.6-15.0)
[2019-10-27 09:01] VITALS: BP 122/67
[2019-10-27 10:49] LABS: BASOPHILS 1 % (0-2); EOSINOPHILS 7 % (0-7); LYMPHOCYTES 21 % (15-50); MONOCYTES 11 % (2-11); NEUTROPHILS 60 % (40-80); PLATELET ESTIMATE NORMAL; ROULEAUX OCC
[2019-10-27 12:37] VITALS: BP 108/65
[2019-10-27 16:47] VITALS: BP 115/64
--- NOTE | 2019-10-27 18:52 | NUR ---
HAS AMBULATED IN HALLS. PATIENT IS WITHOUT DISTRESS.
[2019-10-27 20:30] VITALS: BP 124/60
[2019-10-28 00:14] VITALS: BP 113/58
--- NOTE | 2019-10-28 02:19 | NUR ---
I have reviewed this patient and I concur with the Shift Assessment completed by the Licensed Practical Nurse today this shift.
--- NOTE | 2019-10-28 02:42 | NUR ---
PT RESTING IN BED. EYES CLOSED. NO SIGNS OF DISTRESS. BREATHING EVEN AND UNLABORED. IV SITE RT CHEST PORT DRESSING CLEAN DRY AND INTACT. SKIN CLEAN DRY AND INTACT. LUNG SOUNDS CLEAR. BOWEL SOUNDS ACTIVE. WILL CONTINUE PLAN OF CARE. CALL LIGHT IN REACH. BED LOWERED AND LOCKED. BED RAILS UPX1. FAMILY AT BEDSIDE.
[2019-10-28 04:30] LABS: BASOPHILS 0.5 % (0-2); EOSINOPHILS 9.8 % (0-7); HEMOGLOBIN 12.8 g/dL (12-16); IMMATURE GRANULOCYTES 0.3 % (0-5); LYMPHOCYTES 24.9 % (15-50); MCH 29.2 pg (26.0-34.0); MCV 91.3 fL (80.0-100.0); MEAN PLATELET VOLUME 11.6 fL (7.4-10.4); MONOCYTES 18.6 % (2-11); NEUTROPHILS 45.9 % (40-80); PLATELET COUNT 289 10x3/uL (130-400); RBC 4.38 10x6/uL (4.00-5.40); RDW 15.1 % (11.5-14.5); WBC 10.6 10x3/uL (4.8-10.8)
[2019-10-28 04:58] LABS: PROTIME 29.8 SECONDS (11.6-15.0)
[2019-10-28 04:59] LABS: ANION GAP 5.6 mmol/L (8-16); BILIRUBIN - TOTAL 0.2 mg/dL (0.2-1.3); CALCIUM 9.8 mg/dL (8.5-10.1); CARBON DIOXIDE 37.7 mmol/L (21.0-32.0); CREATININE - SERUM 1.8 mg/dL (0.6-1.3); POTASSIUM - SERUM 3.3 mmol/L (3.5-5.1); PROTEIN - SERUM 7.7 g/dL (6.4-8.2)
[2019-10-28 05:18] LABS: INR 2.9 (0.85-1.17)
[2019-10-28 06:10] VITALS: BP 99/53
--- NOTE | 2019-10-28 09:42 | NUR ---
SHE HAD A GGE THIS MORNING. SHE C/O PAIN 11/12, PRN GIVEN FOR PAIN, SHE IS SETTING UP ON HER BED EATING BREAKFAST. THE CALL LIGHT IS WTIHIN REACH.
[2019-10-28 12:00] VITALS: BP 114/65
[2019-10-28 16:00] VITALS: BP 117/67
--- NOTE | 2019-10-28 17:32 | MORECARE ---
CASE MANAGEMENT DISCHARGE SUMMARY PATIENT: SAE BARBOSA SAMUEL UNIT: [id number] ADM DATE: 10/23/19 AGE: 59 : 62 SEX: F ROOM/BED: D.2222 AUTHOR: ZAIN LIZ PHYSICIAN: REFERRING PHYSICIAN: FABIAN VIERA MD DATE OF SERVICE: 10/28/19 Discharge Plan Patient Name: SAE BARBOSA Facility: [facility]:[place] : 1960 Planned Disposition: Anticipated Discharge Date: Discharge Date: Expected LOS: Initial Reviewer: [email or web address] Initial Review Date: 10/28/2019 Generated: 10/28/19 6:31 pm Patient Name: SAE BARBOSA Page [id number] at 1732 All edits/amendments must be made on the electronic document DICTATION DATE: 10/28/191730 SEASONAL WAREHOUSE ASSOCIATE: KATELYN 10/28/191730 RPT#: [id number] DC DATE: STATUS: ADM IN [facility] [address] [place] [address] END OF REPORT
[2019-10-28 20:00] VITALS: BP 140/68
--- NOTE | 2019-10-28 22:30 | NUR ---
PT ALERT AND OREINTED. NO SINGS OF DISTRESS. BREATHING EVEN AND UNLABORED. CVL DRESSING CHANGE DONE. PT TOLERATED WELL. CLEAR NEEDLESS CONNECTORS CHANGED WELL. CALL LIGHT IN REACH. BED LOWERED AND LOCKED. WILL CONTINUE PLAN OF CARE.
[2019-10-29] VITALS: BP 115/53
--- NOTE | 2019-10-29 03:43 | NUR ---
I have reviewed this patient and I concur with the Shift Assessment completed by the Licensed Practical Nurse today this shift.
[2019-10-29 04:00] VITALS: BP 121/49
[2019-10-29] MEDS ORDERED: CHRONULAC30 ML PO (07:41)
[2019-10-29] MEDS ORDERED: LINZESS145 MCG PO (07:42)
[2019-10-29] MEDS ORDERED: ANUSOL-HC25 MG RC (07:43)
[2019-10-29 08:43] LABS: INR 1.82 (0.85-1.17); PROTIME 20.8 SECONDS (11.6-15.0)
[2019-10-29 08:47] VITALS: BP 118/59
--- NOTE | 2019-10-29 08:58 | NUR ---
SHE IS GOING HOME TODAY. SHE ASKED FOR SOMETHING FOR PAIN. THE CALL LIGHT IS WITHIN REACH.
--- NOTE | 2019-10-29 09:59 | NUR ---
DISCHARGE PAPERWORK IS DONE, THE PATIENT IS NOT IN THE ROOM.
--- NOTE | 2019-10-29 11:09 | NUR ---
DISCHARGE PAPERWORK GONE OVER, QUESTIONS ANSWERED. DEACCESSED HER RIGHT INFUSA PORT. WAITING FOR HER RIDE TO GET HERE.
--- NOTE | 2019-10-29 14:07 | NUR ---
SHE WAS TAKEN DOWNSTAIRS TO THE FRONT DOOR. SHE IS WAITING FOR HER RIDE. SHE HAS SIGNED HER PAPERWORK.
--- NOTE | 2019-10-30 11:55 | MORECARE ---
CASE MANAGEMENT DISCHARGE SUMMARY PATIENT: SAE BARBOSA SAMUEL UNIT: [id number] ADM DATE: 10/23/19 AGE: 59 : 62 SEX: F ROOM/BED: D.2222 AUTHOR: ZAIN LIZ PHYSICIAN: REFERRING PHYSICIAN: FABIAN VIERA MD DATE OF SERVICE: 10/30/19 Discharge Plan Patient Name: SAE BARBOSA [facility] [facility] 1960 Planned Disposition: Anticipated Discharge Date: Discharge Date: 10/29/2019 Expected LOS: Initial Reviewer: [email or web address] Initial Review Date: 10/28/2019 Generated: 10/30/19 12:54 pm Last DP export: 10/28/19 4:32 p Patient Name: SAE BARBOSA Page 24855 at 1155 All edits/amendments must be made on the electronic document DICTATION DATE: 10/30/19 1154 RECORDS MANAGEMENT COORDINATOR: KATELYN 10/30/19 1154 RPT#: [id number] DC DATE:10/29/19 STATUS: DIS IN [facility] [address] [place] [address] END OF REPORT
== END 2019-10-29 14:08 | disposition home or self-care (01) | DRG 392 ==
LOC: D.ER 18:21 → D.MS 21:36 → OBSVTIME 22:23 → D.MS 10-23 21:39
PROVIDERS: Family Medicine; ADMIT Family Medicine; ATTEND Family Medicine
DX: K59.00 Constipation, unspecified (principal); I50.32 Chronic diastolic (congestive) heart failure; K31.9 Disease of stomach and duodenum, unspecified; E11.65 Type 2 diabetes mellitus with hyperglycemia; R10.9 Unspecified abdominal pain; J44.9 Chronic obstructive pulmonary disease, unspecified; E03.9 Hypothyroidism, unspecified; I11.0 Hypertensive heart disease with heart failure; K21.9 Gastro-esophageal reflux disease without esophagitis; F17.200 Nicotine dependence, unspecified, uncomplicated

== ENCOUNTER 2020-07-31 09:41 | Inpatient (IN) | payer MEDICARE, MEDICAID ==
[~2020-07-31] VITALS: Ht 171.4 cm; Wt 81.6 kg
[~2020-07-31 09:41] MED LIST changes: +ANUSOL-HC25 MG RC; +CARDIZEM CD240 MG PO; +CHRONULAC30 ML PO; -COUMADIN5 MG PO; +LANTUS INS100 UNITS/ SC; -LANTUS INSULIN10 ML SC; +LEVOFLOXACIN500 MG PO; +LINZESS145 MCG PO; +PHENERGAN25 M1 PO; +WARFARIN SODIU7.5 MG PO; +WARFARIN SODIUM5 MG PO
[2020-07-31 09:50] VITALS: BP 89/42
[2020-07-31 10:02] LABS: BASOPHILS 0.2 % (0-2); EOSINOPHILS 4.3 % (0-7); HEMATOCRIT 35.6 % (36.0-48.0); HEMOGLOBIN 11.2 g/dL (12-16); IMMATURE GRANULOCYTES 0.2 % (0-5); LYMPHOCYTE ABS# 2.31 10x3/uL (1.18-3.74); LYMPHOCYTES 15.7 % (15-50); MCH 27.5 pg (26.0-34.0); MCHC 31.5 g/dL (31.0-37.0); MCV 87.3 fL (80.0-100.0); MEAN PLATELET VOLUME 10.9 fL (7.4-10.4); MONOCYTES 16.3 % (2-11); NEUTROPHIL ABS# 9.35 10x3/uL (1.56-6.13); NEUTROPHILS 63.3 % (40-80); RBC 4.08 10x6/uL (4.00-5.40); WBC 14.8 10x3/uL (4.8-10.8)
[2020-07-31 10:03] LABS: APTT 36.7 SECONDS (22.8-39.4); INR 1.52 (0.85-1.17)
[2020-07-31 10:04] LABS: CALC OSMOLALITY 293 mosm/kg (275-300); CALCIUM 9.5 mg/dL (8.5-10.1); CARBON DIOXIDE 32.6 mmol/L (21.0-32.0); CHLORIDE - SERUM 103 mmol/L (98-107); CREATININE - SERUM 2.3 mg/dL (0.6-1.3); GLUCOSE 81 mg/dL (74-106); PLATELET COUNT 267 10x3/uL (130-400); POTASSIUM - SERUM 3.9 mmol/L (3.5-5.1); SODIUM 139 mmol/L (136-145); UREA NITROGEN 60 mg/dL (7-18); eGFR NON AFRICAN AMERICAN 23 mL/min (90-120)
--- NOTE | 2020-07-31 10:06 | NUR ---
PT BACK FROM CT VIA STRETCHER
[2020-07-31 10:22] LABS: ALBUMIN 3.2 g/dL (3.4-5.0); ALKALINE PHOSPHATASE 132 U/L (30-120); ALT (SGPT) 31 U/L (10-68); CKMB 2.5 U/L (0.0-3.6); CREATINE KINASE 311 UL (21-215); MAGNESIUM - SERUM 2.2 mg/dL (1.8-2.4); PROTEIN - SERUM 7.8 g/dL (6.4-8.2); THYROID STIMULATING HORMONE 1.25 uIU/mL (0.36-3.74); TROPONIN-I < 0.017 ng/mL (0.000-0.060)
[2020-07-31 10:25] LABS: UDS - AMPHET POSITIVE QUAL (NEGATIVE); UDS - BARB NEGATIVE QUAL (NEGATIVE); UDS - BENZO POSITIVE QUAL (NEGATIVE); UDS - COCAINE NEGATIVE QUAL (NEGATIVE); UDS - OPIATE POSITIVE QUAL (NEGATIVE); UDS - PCP NEGATIVE QUAL (NEGATIVE); UDS - THC NEGATIVE QUAL (NEGATIVE)
[2020-07-31 10:54] LABS: BILIRUBIN NEGATIVE (NEGATIVE); KETONE NEGATIVE (NEGATIVE); NITRITE NEGATIVE (NEGATIVE); UROBILINOGEN NORMAL mg/dL (< 2)
[2020-07-31 11:22] VITALS: BP 94/45
--- NOTE | 2020-07-31 12:25 | NUR ---
RECEIVED PT TO ROOM 2126 VIA STRETCHER, TRANSFERED PT FROM STRETCHER TO BED X2 ASSIST. BANG CATHETER DRAINING YELLOW URINE TO GRAVITY. PT LETHARGIC BUT EASILY AROUSES TO VOICE. SPEECH IS A LITTLE GARBBLE AT TIMES. RT AV IV INFUSING NS AT 75CC/HR. PLACED SCDS ON BILAT. PACEMAKER NOTED TO LT CHEST AND INFUSAPORT TO RT CHEST. PT DENIES ANY NEEDS AT THIS TIME. FEMALE FRIEND AT BEDSIDE, WHO STATES THAT SHE HAS POA OVER PT. INFORMED HER THAT WE NEED TO HAVE RECORDS ON FILE, STATES THAT DR. VIERA'S OFFICE HAS IT. ORIENTED PT TO ROOM AND CALL LIGHT, VINI ALARM ON, BEDSIDE RAILS X2, CALL LIGHT IN REACH, WILL START PLAN OF CARE.
[2020-07-31] MEDS ORDERED: COLACE100 MG PO (12:57)
[2020-07-31] MEDS ORDERED: DILTIAZEM 24HR180 M4 PO (12:58)
[2020-07-31] MEDS ORDERED: PROZAC40 MG PO (12:59)
[2020-07-31] MEDS ORDERED: GABAPENTIN300 MG PO (13:00)
[2020-07-31] MEDS ORDERED: GLIMEPIRIDE2 MG PO (13:01)
[2020-07-31] MEDS ORDERED: CHRONULAC30 ML PO (13:03)
[2020-07-31] MEDS ORDERED: NICODERM CQ1 EAC3 TOPICAL (13:05)
[2020-07-31] MEDS ORDERED: MIRALAX17 GM PO (13:05)
[2020-07-31] MEDS ORDERED: HYDROCODON-ACE1 EA10 PO (13:06)
[2020-07-31] MEDS ORDERED: ROPINIROLE HCL4 M1 PO (13:08)
[2020-07-31] MEDS ORDERED: LIPITOR80 MG PO (13:10)
[2020-07-31] MEDS ORDERED: LEVO-T25 MCG PO (13:11)
[2020-07-31] MEDS ORDERED: IBUPROFEN200 MG PO (13:11)
[2020-07-31] MEDS ORDERED: HUMALOG 30100 UNITS/ SC (13:12)
[2020-07-31 13:21] VITALS: BP 140/70
[2020-07-31 13:25] VITALS: BP 102/46; BMI 27.8
--- NOTE | 2020-07-31 15:44 | HP ---
PATIENT: SAE BARBOSA MEDICAL RECORD: [id number] ACCOUNT: [id number] LOCATION:.[facility]2127 : 61 ADMISSION DATE: 07/31/20 PCP: FABIAN VIERA HISTORY AND PHYSICAL EXAMINATION REASON FOR ADMISSION: Altered mental status. HISTORY OF PRESENT ILLNESS: The patient is a 60-year-old female with history of diabetes mellitus type 2, hypertension, hyperlipidemia, atrial fibrillation on Coumadin, who incurred a left parietal temporal CVA due to low INR, June of this year. She was initially treated at [facility] and then transferred to [facility] in [place] where Dr. Carrillo and Dr. Babin cared for her. A carotid CTA of the neck arteries at that time showed 41% stenosis of the right carotid bulb and 43% stenosis of the left. Dr. Babin's recommendation to keep her INR between 2.5 and 3.5, although she had some mild hemorrhagic conversion on CT scan at that time. She was discharged to [facility] rehab and was seen in the office on by Dr. Viera. Her INR at that time was slightly subtherapeutic and her BUN and creatinine were 60 and 2.2. The patient states that she became somewhat confused this morning, a friend came by and found her to be minimally responsive and she was brought by EMS to the ED. On arrival there, her urine drug screen was positive for benzodiazepines, methamphetamine, which she has not prescribed and also opioids, which she is prescribed for chronic pain. CT of the head showed subacute CVA in the aforementioned areas, nothing acute. No evidence of hemorrhage. The patient now is responsive, but her speech is slurred. She denies using any illicit drugs, but I could not see where she was prescribed 2-3 drugs in her drug screen. She was also mildly hypotensive and is currently getting IV fluids. PAST MEDICAL HISTORY: Type 2 diabetes mellitus, hypertension, atrial fibrillation post mitral valve replacement with a tissue prosthesis, PAO and RVH with recent echo showing ejection fraction of 30%, hyperlipidemia, COPD, chronic migraines. She had normal cardiac catheterization in 2019. At that time, her EF of 60%. Now, it is decreased. History of neuropathy, pacemaker placement for sick sinus syndrome, remote CABG, remote endocarditis, postmenopausal post-hysterectomy sparing ovaries, anxiety, depression, allergic rhinitis, IBS with constipation. PAST SURGICAL HISTORY: Cholecystectomy, hysterectomy sparing ovaries, defibrillator placement, mitral valve replacement times 2, splenectomy, CABG. ALLERGIES: PENICILLIN AND CEFTRIAXONE. FAMILY HISTORY: Positive for parents with cardiovascular disease and cancer. SOCIAL HISTORY: She denies recreational drug use. Denies recent nicotine use. HOME MEDICATIONS: Fluoxetine 20 mg daily, diltiazem ER 360 mg daily, metolazone 2.5 mg t.i.d., Advair Diskus 500/50 one puff b.i.d., Lantus SoloSTAR insulin 30 units subQ q.p.m., Toprol XL 100 mg daily, Gabapentin 300 mg 1 tab t.i.d., lactulose 30 cc by mouth daily as needed for constipation, [place] 10/325 one four times daily, Aldactone 25 mg daily, Bumex 2 mg b.i.d., sotalol 80 mg one b.i.d., Xanax 2 mg one t.i.d. p.r.n. anxiety, famotidine 40 mg p.o. at bedtime, ProAir HFA 1 puff every 4-6 hours p.r.n., glimepiride 2 mg p.o. q.a.m., lisinopril 2.5 mg p.o. daily, simvastatin 40 mg with evening meal, ropinirole 4 mg p.o. at HISTORY AND PHYSICAL [id number] SAE BARBOSA SAMUEL bedtime, potassium chloride 20 mEq daily. REVIEW OF SYSTEMS: GENERAL: The patient gives a poor history. Currently, she is sedated, but denies any recent fever or weight loss. HEENT: No recent headache or visual change. RESPIRATORY: Admits to shortness of breath on exertion, no recent cough. CARDIOVASCULAR: Denies chest pain, palpitations plus PND. GENITOURINARY: No incontinence. GYNECOLOGICAL: No vaginal bleeding. GASTROINTESTINAL: No nausea, vomiting, change in stools or blood per rectum. MUSCULOSKELETAL: Has chronic lumbago without sciatica. NEUROLOGIC: States she still has some weakness from her stroke, mainly on her right side. Denies seizures. PSYCHIATRIC: Admits to anxiety and depressed mood. PHYSICAL EXAMINATION: VITAL SIGNS: Blood pressure 94/45 with a heart rate of 69 and regular with occasional ectopic beats, temperature 97.3 Fahrenheit orally, respirations are 16, sats 95% on room air. GENERAL: The patient arouses to vocal command, but speech is somewhat slurred. HEENT: Normocephalic. EYES: Clear with dilated pupils are reactive. NECK: No bruits. Mucous membranes orally are dry. CHEST: Clear, without wheeze or rales. HEART: Regular rate without gallop. Healed sternotomy scar is noted. ABDOMEN: Soft, nontender throughout. Bowel sounds are active. PELVIC: Deferred. EXTREMITIES: 1+ bipedal edema bilaterally. NEUROLOGICAL: The patient is oriented to person, but not to place and time. She has slight weakness in the right arm and right leg. Gait was not tested due to her mental status. LABORATORY DATA: Urine drug screen was positive for opiates, amphetamines, benzodiazepines. White count is 14.8 thousand, H&H is 11 and 35.6 respectively. INR is 1.52 subtherapeutic, CO2 serum is 32, BUN and creatinine 60 and 2.3. Her normal creatinine is 1.5. Glucose is 81. Ammonia level is 33, alkaline phosphatase is 132. Cardiac enzymes are negative except for a total creatinine kinase of 311. DIAGNOSTIC DATA: CT of the head shows encephalomalacia in the left parietal lobe and posterior left temporal lobe, left occipital lobe and right cerebellar hemisphere consistent with remote infarcts. Mild cerebral volume loss. Chest x-ray showed cardiomegaly. IMPRESSION: Altered mental status, possible drug intoxication, alcohol intoxication. Acute renal failure, probably due to diuretics, history of recent left parietal and temporal cerebrovascular accident, on subtherapeutic Coumadin, history of mitral valve replacement times 2, history of atrial fibrillation, sick sinus syndrome with pacemaker, systolic congestive heart failure. PLAN: The patient will be admitted, given IV fluids for her current hypotension. We will hold diuretics currently as well as sedatives. Reassess neuro status once these drugs have cleared. Dr. Viera will resume her care in the morning and he will discuss with her positive methamphetamine drug HISTORY AND PHYSICAL [id number] SAE BARBOSA. TRANSINT:[id number] Voice Confirmation ID: [id number] DOCUMENT ID: [id number] BLOSSOM VALLEJO MD at 1544 CC: [id number] DICTATION DATE: 07/31/20 1211 FOREST SUPERVISOR: 07/31/20 1455 ADM IN [facility] [address] [place] [address]
--- NOTE | 2020-07-31 15:49 | NUR ---
BLOOD SUGAR OF 63, PT JUST NOW EATING LUNCH, WILL LET HER EAT AND THEN I WILL RECHECK HER SUGAR. PT DENIES ANY NEEDS, CALL LIGHT IN REACH.
[2020-07-31 16:16] VITALS: BP 114/59
--- NOTE | 2020-07-31 16:32 | NUR ---
RECHECKED BLOOD SUGAR AND NOW 66, GAVE PT ORANGE JUICE AND GRAM CRACKERS. ENCOURAGED PT TO EAT DINNER WHEN IT ARRIVES. PT DENIES ANY NEEDS AT THIS TIME. CALL LIGHT IN REACH.
[2020-07-31 20:00] VITALS: BP 113/47
[2020-08-01] VITALS: BP 100/44
[2020-08-01 04:00] VITALS: BP 105/51
--- NOTE | 2020-08-01 04:09 | NUR ---
I have reviewed this patient and I concur with the Shift Assessment completed by the Licensed Practical Nurse today this shift.
--- NOTE | 2020-08-01 07:07 | NUR ---
RECEIVED REPORT. ASSUMED CARE OF PATIENT. PATIENT RECEIVING NEB TX AT THIS TIME. EASILY AROUSED. WHITE BOARD UPDATED, BEDSIDE SHIFT REPORT COMPLETE. CALL LIGHT WITHIN REACH. SCDS TO BLE. NO DISTRESS.
[2020-08-01 07:09] LABS: BASOPHILS 0.3 % (0-2); EOSINOPHILS 5.7 % (0-7); HEMATOCRIT 37.3 % (36.0-48.0); HEMOGLOBIN 11.7 g/dL (12-16); IMMATURE GRANULOCYTES 0.2 % (0-5); LYMPHOCYTE ABS# 2.21 10x3/uL (1.18-3.74); LYMPHOCYTES 18.4 % (15-50); MCH 27.5 pg (26.0-34.0); MCHC 31.4 g/dL (31.0-37.0); MCV 87.8 fL (80.0-100.0); MEAN PLATELET VOLUME 11.1 fL (7.4-10.4); MONOCYTES 17.7 % (2-11); NEUTROPHIL ABS# 6.93 10x3/uL (1.56-6.13); NEUTROPHILS 57.7 % (40-80); PLATELET COUNT 292 10x3/uL (130-400); RBC 4.25 10x6/uL (4.00-5.40); RDW 16.2 % (11.5-14.5)
[2020-08-01 07:23] LABS: INR 1.38 (0.85-1.17); PROTIME 15.7 SECONDS (11.6-15.0)
[2020-08-01 07:31] LABS: ALBUMIN 3.1 g/dL (3.4-5.0); ANION GAP 11.4 mmol/L (8-16); BILIRUBIN - TOTAL 0.33 mg/dL (0.2-1.3); CALCIUM 9.2 mg/dL (8.5-10.1); CARBON DIOXIDE 28.7 mmol/L (21.0-32.0); POTASSIUM - SERUM 4.1 mmol/L (3.5-5.1); PROTEIN - SERUM 7.2 g/dL (6.4-8.2)
[2020-08-01 07:33] LABS: CREATININE - SERUM 1.3 mg/dL (0.6-1.3)
[2020-08-01 08:14] VITALS: BP 110/52
--- NOTE | 2020-08-01 11:13 | NUR ---
FSBS 124. NO INSULIN PER SLIDING SCALE. PATIENT RESTING WITH EYES CLOSED, EASILY AROUSED WITH VERBAL STIMULI.
[2020-08-01 12:58] VITALS: BP 106/43
--- NOTE | 2020-08-01 14:04 | NUR ---
CONTACT INFO/POA: RAMIRO HERNANDEZ [phone]. PER PATIENT, VERBAL CONSENT GIVEN TO SPEAK TO RAMIRO HERNANDEZ IN REGARDS TO CARES, PATIENT ALSO STATES THIS IS HER POA. PER RAMIRO HERNANDEZ, THE PLAN IS FOR PATIENT TO GO TO [facility] UPON DISCHARGE. RAMIRO SCHNEIDER SISTER IS AN OCCUPATIONAL THERAPIST AT [facility] AND ARE REQUESTING THEY BE CALLED AND WILL GET PATIENT A BED AT [facility].
--- NOTE | 2020-08-01 14:10 | NUR ---
FYI- PATIENT HAS BEEN SEEING DR.JOE NELSON, PSYCH PHYSICIAN IN [place]. PER THE FILL HISTORY OF MEDICATION, PATIENT HAS BEEN PRESCRIBED XANAX 2MG, 2 TABLETS PO 3 X DAILY.
--- NOTE | 2020-08-01 14:39 | NUR ---
ASSISTED PATIENT OOB TO RESTROOM FOR BM AT THIS TIME AND BACK TO BED. AMBULATED WELL. NO DISTRESS. CALL LIGHT WITHIN REACH.
[2020-08-01 14:45] VITALS: BMI 27.7
[2020-08-01 15:12] VITALS: BP 105/41
--- NOTE | 2020-08-01 16:13 | NUR ---
FSBS 92. NO INSULIN PER SLIDING SCALE.
[2020-08-01 17:12] VITALS: Ht 171.4 cm; Wt 81.6 kg
[2020-08-01 20:00] VITALS: BP 99/53
[2020-08-02] VITALS: BP 107/51
--- NOTE | 2020-08-02 01:04 | NUR ---
I have reviewed this patient and I concur with the Shift Assessment completed by the Licensed Practical Nurse today this shift.
[2020-08-02 04:00] VITALS: BP 123/55
--- NOTE | 2020-08-02 08:36 | NUR ---
PT SITTING UP IN BED, RR EVEN NON LABORED, O2 IN [place] VIA NC. PT AWAKE AND ALERT, SPEECH SLOW BUT PT ABLE TO STATE HER WANTS/NEEDS. PT ASSISTED TO AND FROM BSC AT THIS TIME. PT TOLERATED WELL, WEAK UNSTEADY GAIT NOTED. PT DENIES ANY FURTHER NEEDS. FRESH WATER AT BEDSIDE. CLWR.
--- NOTE | 2020-08-02 10:32 | NUR ---
PT INCONTINENT EPISODE CLEANED AND NEW SHEETS PLACED ON BED. PT PULLED UP IN BED AND TV TURNED ON. PT GIVEN FRESH WATER. PT REQUEST DOOR TO BE OPEN , NO FURTHER NEEDS VOICED. CLWR.
--- NOTE | 2020-08-02 11:26 | NUR ---
I CALLED AND SPOKE WITH DR WALSH R/T BETI CATH PLACED IN THE ED. HE STATES THAT WE CAN REMOVE IT AND IF NEEDED USE A PURWICK.
--- NOTE | 2020-08-02 12:20 | NUR ---
F/C D/C'D AT THIS TIME PER ORDER. PT TOLERATED WELL. EDUCATION GIVEN REGARDING THE NEED TO USE CALL LIGHT TO USE THE RESTROOM. PT STATES UNDERSTANDING. NO FURTHER NEEDS VOICED AT THIS TIME. CLWR.
[2020-08-02 12:25] VITALS: BP 131/50
--- NOTE | 2020-08-02 14:48 | NUR ---
PT ASSISTED INTO SHOWER X1 ASSIST. PT HAIR WASHED, PT PARTICIPATED IN BATHING AND TOLERATED WELL. PT ON ROOM AIR WITHOUT PROBLEMS. RR EVEN NON LABORED. PT ASSISTED INTO CLOTHING AND NON SKID SOCKS, SCDS IN PLACE. PT DENIES ANY FURTHER NEEDS AND STATES APPRECIATION. CLWR.
--- NOTE | 2020-08-02 18:56 | NUR ---
UP WITH ASSIST TO BSC.
[2020-08-02 20:00] VITALS: BP 146/80
--- NOTE | 2020-08-03 00:15 | NUR ---
RESTING WITH EYES CLOSED, RESPERATIONS EVEN, NO S/S DISTRESS NOTED.
--- NOTE | 2020-08-03 01:31 | MORECARE ---
CASE MANAGEMENT DISCHARGE SUMMARY PATIENT: SAE BARBOSA SAMUEL UNIT: [id number] ADM DATE: 07/31/20 AGE: 60 : 62 SEX: F ROOM/BED: D.4467 AUTHOR: SHALONDADOC PHYSICIAN: REFERRING PHYSICIAN: BLOSSOM VALLEJO MD DATE OF SERVICE: 08/03/20 Case Management Discharge Planning Summary CT Patient Name: SAE BARBOSA Attending MD : BLOSSOM PERES Medical Record: [id number] Encounter : [id number] Facility : [address] [place] [address] Admission Date : 112:00 Center Discharge Date : [address] [place] [address] Date of : DC Plan ID : [id number] Age/Sex/Martia : 60/ F/S Printed on : 08/03/20 1:30 CT DCP Review Details Anticipated D/C: Expected LOS : Case Status : INITIATED - Initial Reviewe: [id number] Argelia Segura Initial Review: 07/31/2020 Planned Disposi: - Final Discharge: - Final Reviewer : : Final Review : DCP Focus Questions & Answers DCP Screen High Risk Factors: Poor social support DCP Evaluation Patient's ability to cope with chronic illness d. No chronic illness Would patient like to participate in any Care Not applicable Coordination programs (if applicable): Mental health screen: No mental health history DCP Re-evaluation Would patient like to participate in any Care Not applicable Coordination programs (if applicable): [facility] SAE BARBOSA MR#: [id number] /Age/Sex/Lookzd40-Xeb-88 /60/F /S Attending Physician Name: CINDY VALLEJO [id number] Patient Account:[id number] [facility] Page -1 of 1 All edits/amendments must be made on the electronic document DICTATION DATE: 08/03/20129 SURGICAL NURSE: KATELYN 08/03/20129 RPT#: [id number] DC DATE: STATUS: ADM IN [facility] [address] [place] [address] END OF REPORT
--- NOTE | 2020-08-03 01:42 | MORECARE ---
CASE MANAGEMENT DISCHARGE SUMMARY PATIENT: SAE BARBOSA SAMUEL UNIT: [id number] ADM DATE: 07/31/20 AGE: 60 : 62 SEX: F ROOM/BED: D.0956 AUTHOR: ZAIN LIZ PHYSICIAN: REFERRING PHYSICIAN: BLOSSOM VALLEJO MD DATE OF SERVICE: 08/03/20 Case Management Discharge Planning Summary CT Patient Name: SAE BARBOSA Attending MD : BLOSSOM PERES Medical Record: [id number] Encounter : [id number] Facility : [address] [place] [address] Admission Date : 112:00 Center Discharge Date : [address] [place] [address] Date of : DC Plan ID : [id number] Age/Sex/Martia : 60/ F/S Printed on : 08/03/20 1:42 CT DCP Review Details Anticipated D/C: Expected LOS : Case Status : INITIATED - Initial Reviewe: [id number] Areglia Segura Initial Review: 07/31/2020 Planned Disposi: - Final Discharge: - Final Reviewer : : Final Review : DCP Focus Questions & Answers DCP Screen High Risk Factors: Poor social support DCP Evaluation Patient's ability to cope with chronic illness d. No chronic illness Patient gives permission to discuss discharge RAMIRO HERNANDEZ IVY- [phone] plans with: (name, relationship and number) Patient's current cognitive status: Intermittently confused / memory changes Functional screen assessment: Basic needs can adequately be met by self Living Arrangements: Home Alone with Support Baseline cognitive status: Intermittently confused / memory changes Living arrangements comments: LIVES ALONE ? WITH A FRIEND Facility / Agency name and contact information PATIENT WAS AT THE [facility] UNTIL 2-3 from Question 3 (if applicable): WKS AGO Would patient like to participate in any Care Not applicable Coordination programs (if applicable): Mental health screen: No mental health history DCP Re-evaluation Would patient like to participate in any Care Not applicable Coordination programs (if applicable): [facility] SAE BARBOSA MR#: [id number] /Age/Sex/Csxzlv98-Etx-85 /60/F /S Attending Physician Name: CINDY VALLEJO [id number] Patient Account:[id number] [facility] Page -1 of 1 All edits/amendments must be made on the electronic document DICTATION DATE: 08/03/20141 RESIDENTIAL SALES EXECUTIVE: KATELYN 08/03/20141 RPT#: [id number] DC DATE: STATUS: ADM IN [facility] [address] [place] [address] END OF REPORT
--- NOTE | 2020-08-03 02:04 | MORECARE ---
CASE MANAGEMENT DISCHARGE SUMMARY PATIENT: SAE BARBOSA UNIT: [id number] ADM DATE: 07/31/20 AGE: 60 : 62 SEX: F ROOM/BED: D.9175 AUTHOR: ZAIN LIZ PHYSICIAN: REFERRING PHYSICIAN: BLOSSOM VALLEJO MD DATE OF SERVICE: 08/03/20 Case Management Discharge Planning Summary CT Patient Name: SAE BARBOSA Attending MD : BLOSSOM PERES Medical Record: [id number] Encounter : [id number] Facility : [address] [place] [address] Admission Date : 112:00 Center Discharge Date : [address] [place] [address] Date of : DC Plan ID : [id number] Age/Sex/Martia : 60/ F/S Printed on : 08/03/20 2:02 CT DCP Review Details Anticipated D/C: Expected LOS : Case Status : INITIATED - Initial Reviewe: [id number] - Mikki Segura Initial Review: 07/31/2020 Planned Disposi: - Final Discharge: - Final Reviewer : : Final Review : Comments CT Entered Date Type Reviewer 08/03/20 1:37 CT Discharge Planning Mikki Segura Comment CM attempted to speak with patient regarding discharge planning. Patient has a history of CVA and has expressive aphasia. She was able to answer a few questions that CM asked regarding discharge planning. She was able to answer yes and no questions appropriately. Patient got very frustrated trying to converse with CM. CM spoke with patients nurse and she stated that she had a friend that was here earlier and had told nurse that she was the patient's friend and POA. She was [facility] that [facility]. CM also had spoken with speech therapist and he stated that he was familiar with patient and that she had just recently discharged from [facility]. within the last month. He stated that she had discharged home with a friend /POA. CM will need to speak with POA and patient to make sure everyone agrees to the discharge plan. CM will continue to follow and assist as needed with discharge planning/ needs. DCP Focus Questions & Answers DCP Screen High Risk Factors: Poor social support DCP Evaluation Patient's ability to cope with chronic illness d. No chronic illness Patient gives permission to discuss discharge RAMIRO HERNANDEZ -[employer]- [phone] plans with: (name, relationship and number) Patient's current cognitive status: Intermittently confused / memory changes Functional screen assessment: Basic needs can adequately be met by self Living Arrangements: Home Alone with Support Baseline cognitive status: Intermittently confused / memory changes Living arrangements comments: LIVES ALONE ? WITH A FRIEND Facility / Agency name and contact information [facility]IENT [facility] UNTIL 2-3 from Question 3 (if applicable): WKS AGO Would patient like to participate in any Care Not applicable Coordination programs (if applicable): Mental health screen: No mental health history DCP Re-evaluation Would patient like to participate in any Care Not applicable Coordination programs (if applicable): [facility] SAE BARBOSA MR#: [id number] /Age/Sex/Ahtfne58-Esv-89 /60/F /S Attending Physician Name: ENGLISH CINDY [id number] Patient Account:[id number] [facility] Page -1 of 1 All edits/amendments must be made on the electronic document DICTATION DATE: 08/03/20201 SKIRT PANEL ASSEMBLER: KATELYN 08/03/20201 RPT#: [id number] DC DATE: STATUS: ADM IN [facility] [address] [place] [address] END OF REPORT
[2020-08-03 04:00] VITALS: BP 134/65
--- NOTE | 2020-08-03 04:08 | NUR ---
I have reviewed this patient and I concur with the Shift Assessment completed by the Licensed Practical Nurse today this shift.
[2020-08-03 06:03] LABS: BASOPHILS 0.2 % (0-2); EOSINOPHILS 4.6 % (0-7); HEMATOCRIT 40.9 % (36.0-48.0); HEMOGLOBIN 12.8 g/dL (12-16); IMMATURE GRANULOCYTES 0.2 % (0-5); LYMPHOCYTE ABS# 2.43 10x3/uL (1.18-3.74); LYMPHOCYTES 18.8 % (15-50); MCH 27.3 pg (26.0-34.0); MCHC 31.3 g/dL (31.0-37.0); MCV 87.2 fL (80.0-100.0); MEAN PLATELET VOLUME 11.5 fL (7.4-10.4); MONOCYTES 18.4 % (2-11); NEUTROPHILS 57.8 % (40-80); PLATELET COUNT 313 10x3/uL (130-400); RBC 4.69 10x6/uL (4.00-5.40); RDW 16.1 % (11.5-14.5)
[2020-08-03 08:08] VITALS: BP 121/49
--- NOTE | 2020-08-03 08:17 | NUR ---
PT AWAKE AND ALERT, PT SPEECH APPEARS SOME BETTER THIS MORNING AND SHE APPEARS HOPEFUL AND HAPPY WITH HER BEING ABLE TO STATE PHRASES. MEDS GIVEN PER EMAR. RR EVEN NON LABORED ON ROOM AIR. PT DENIES ANY PAIN OR NEEDS. CLWR.
[2020-08-03 08:20] LABS: ANION GAP 13.1 mmol/L (8-16); CALCIUM 9.3 mg/dL (8.5-10.1); CARBON DIOXIDE 24.1 mmol/L (21.0-32.0); CREATININE - SERUM 0.9 mg/dL (0.6-1.3); POTASSIUM - SERUM 4.2 mmol/L (3.5-5.1)
--- NOTE | 2020-08-03 08:46 | NUR ---
PT ASSISTED ON AND OFF BEDSIDE COMMODE AT THIS TIME. PT TOLERATED ACTIVITY WELL. NO FURTHER NEEDS VOICED. CLWR
[2020-08-03 10:11] LABS: INR 1.45 (0.85-1.17); PROTIME 16.4 SECONDS (11.6-15.0)
[2020-08-03 11:45] VITALS: BP 133/65
--- NOTE | 2020-08-03 12:35 | NUR ---
ASSISTED PT WITH MAKING PHONE CALL IN ROOM TO HER FRIEND GILBERTO BAKER. PT RR EVEN NON LABORED, PT SITTING UP IN BED EATING LUNCH. PT SPEECH IMPROVED THIS AFTERNOON, PT EXCITED ABOUT HER BEING ABLE TO TALK BETTER. NO NEEDS VOICED. CLWR.
--- NOTE | 2020-08-03 13:20 | NUR ---
Nutrition Follow-up: Pt unavailable at time of visit this AM. Chart reviewed. Poor PO intake recorded. Awaiting placement. Diet: Carb Consistent PO intake: 33% avg x 3 yesterday No new wt; last wt: 180# (08/01) Labs noted: Glu 120 Meds noted: Coumadin, Lactulose, Glyburide, Linzess, NS @ 75, electrolyte protocol -Encourage PO intake and honor food preferences within diet restrictions. -Offer/encourage Glucerna with meals. -Need new wt. -RD follow-up: 08/08
--- NOTE | 2020-08-03 15:31 | NUR ---
PT AMBULATED IN HALLWAY WITHOUT ASSISTANCE, TOLERATED ACTIVITY WELL. PT GIVEN SCHEDULED MEDICATIONS. PT ASKED ABOUT PAIN MEDICATION D/T HEADACHE AND BACK PAIN. PER EMAR PT HAS PRN PAIN MEDICATION, WILL CALL MD FOR POTENTIAL ORDER. NO FURTHER NEEDS VOICED. CLWR.
[2020-08-03 18:10] VITALS: BP 116/53
--- NOTE | 2020-08-03 18:57 | NUR ---
AMBULATING IN JAIMES, GIAT STEADY.
--- NOTE | 2020-08-03 20:51 | MORECARE ---
CASE MANAGEMENT DISCHARGE SUMMARY PATIENT: SAE BARBOSA UNIT: [id number] ADM DATE: 07/31/20 AGE: 60 : 62 SEX: F ROOM/BED: D.2649 AUTHOR: ZAIN LIZ PHYSICIAN: REFERRING PHYSICIAN: BLOSSOM VALLEJO MD DATE OF SERVICE: 08/03/20 Case Management Discharge Planning Summary CT Patient Name: SAE BARBOSA Attending MD : BLOSSOM PERES Medical Record: [id number] Encounter : [id number] Facility : [address] [place] [address] Admission Date : 112:00 Center Discharge Date : [address] [place] [address] Date of : DC Plan ID : [id number] Age/Sex/Martia : 60/ F/S Printed on : 08/03/20 20:49 CT DCP Review Details Anticipated D/C: Expected LOS : Case Status : INITIATED - Initial Reviewe: [id number] - Mikki Segura Initial Review: 07/31/2020 Planned Disposi: - Final Discharge: - Final Reviewer : : Final Review : Comments CT Entered Date Type Reviewer 08/03/20 20:46 CT Discharge Planning Mikki Segura Comment CM spoke with patient today she was able to converse with CM. Patient stated that she thinks that she can discharge to her home tomorrow. Patient up ambulating in coelho independently. 08/03/20 1:37 CT Discharge Planning Mikki Segura Comment CM attempted to speak with patient regarding discharge planning. Patient has a history of CVA and has expressive aphasia. She was able to answer a few questions that CM asked regarding discharge planning. She was able to answer yes and no questions appropriately. Patient got very frustrated trying to converse with CM. CM spoke with patients nurse and she stated that she had a friend that was here earlier and had told nurse that she was the patient's friend and POA. She was requesting that patient be potentially discharged to [facility] where she worked. CM also had spoken with speech therapist and he stated that he was familiar with patient and that she had just recently discharged from [facility]. within the last month. He stated that she had discharged home with a friend /POA. CM will need to speak with POA and patient to make sure everyone agrees to the discharge plan. CM will continue to follow and assist as needed with discharge planning/ needs. DCP Focus Questions & Answers DCP Screen High Risk Factors: Poor social support DCP Evaluation Patient's current cognitive status: Intermittently confused / memory changes Patient gives permission to discuss discharge RAMIRO DHILLON- [phone] plans with: (name, relationship and number) Patient's ability to cope with chronic illness d. No chronic illness Functional screen assessment: Basic needs can adequately be met by self Living Arrangements: Home Alone with Support Living arrangements comments: LIVES ALONE ? WITH A FRIEND Baseline cognitive status: Intermittently confused / memory changes Facility / Agency name and contact information PATIENT [facility] AT [facility] UNTIL 2-3 from Question 3 (if applicable): WKS AGO Would patient like to participate in any Care Not applicable Coordination programs (if applicable): Mental health screen: No mental health history DCP Re-evaluation Would patient like to participate in any Care Not applicable Coordination programs (if applicable): [facility] SAE BARBOSA MR#: [id number] /Age/Sex/Raubsy24-Xur-32 //F /S Attending Physician Name: CINDY VALLEJO [id number] Patient Account:[id number] [facility] Page -1 of 1 All edits/amendments must be made on the electronic document DICTATION DATE: 08/03/202048 AERODYNAMICS TEACHER: KATELYN 08/03/202048 RPT#: [id number] DC DATE: STATUS: ADM IN [facility] [address] [place] [address] END OF REPORT
[2020-08-04] VITALS: BP 96/49
--- NOTE | 2020-08-04 02:33 | NUR ---
I have reviewed this patient and I concur with the Shift Assessment completed by the Licensed Practical Nurse today this shift.
[2020-08-04 04:00] VITALS: BP 132/63
[2020-08-04 06:04] LABS: BASOPHILS 0.3 % (0-2); HEMATOCRIT 39.2 % (36.0-48.0); HEMOGLOBIN 12.2 g/dL (12-16); IMMATURE GRANULOCYTES 0.3 % (0-5); LYMPHOCYTE ABS# 2.39 10x3/uL (1.18-3.74); LYMPHOCYTES 20.8 % (15-50); MCH 27.5 pg (26.0-34.0); MCHC 31.1 g/dL (31.0-37.0); MCV 88.3 fL (80.0-100.0); MEAN PLATELET VOLUME 12.1 fL (7.4-10.4); MONOCYTES 17.2 % (2-11); NEUTROPHIL ABS# 6.51 10x3/uL (1.56-6.13); NEUTROPHILS 56.4 % (40-80); PLATELET COUNT 323 10x3/uL (130-400); RBC 4.44 10x6/uL (4.00-5.40); RDW 15.9 % (11.5-14.5); WBC 11.5 10x3/uL (4.8-10.8)
[2020-08-04 06:44] LABS: CALC OSMOLALITY 277 mosm/kg (275-300); CALCIUM 8.7 mg/dL (8.5-10.1); CARBON DIOXIDE 24.2 mmol/L (21.0-32.0); CHLORIDE - SERUM 105 mmol/L (98-107); CREATININE - SERUM 0.8 mg/dL (0.6-1.3); GLUCOSE 106 mg/dL (74-106); POTASSIUM - SERUM 4.2 mmol/L (3.5-5.1); SODIUM 139 mmol/L (136-145); UREA NITROGEN 13 mg/dL (7-18); eGFR NON AFRICAN AMERICAN 78 mL/min (90-120)
[2020-08-04 07:05] LABS: PROTIME 19.3 SECONDS (11.6-15.0)
[2020-08-04 07:06] LABS: INR 1.79 (0.85-1.17)
[2020-08-04 07:56] VITALS: BP 162/75
--- NOTE | 2020-08-04 10:34 | MORECARE ---
CASE MANAGEMENT DISCHARGE SUMMARY PATIENT: SAE BARBOSA UNIT: [id number] ADM DATE: 07/31/20 AGE: 60 : 62 SEX: F ROOM/BED: D.5048 AUTHOR: ZAIN LIZ PHYSICIAN: REFERRING PHYSICIAN: BLOSSOM VALLEJO MD DATE OF SERVICE: 08/04/20 Case Management Discharge Planning Summary CT Patient Name: SAE BARBOSA Attending MD : BLOSSOM PERES Medical Record: [id number] Encounter : [id number] Facility : [address] [place] [address] Admission Date : 112:00 Center Discharge Date : [address] [place] [address] Date of : DC Plan ID : [id number] Age/Sex/Martia : 60/ F/S Printed on : 08/04/20 10:32 CT DCP Review Details Anticipated D/C: Expected LOS : Case Status : INITIATED - Initial Reviewe: [id number] - Mikki Segura Initial Review: 07/31/2020 Planned Disposi: - Final Discharge: - Final Reviewer : : Final Review : Comments CT Entered Date Type Reviewer 08/04/20 10:22 CT Discharge Planning Aurora Jaquez Comment CM spoke with patient and then called her POA, Ramiro Hernandez. They are both in agreement to have a referral to [facility] [place] in [place]. I called [facility] and spoke with Myrtle and faxed clinical. Patient states if insurance does not authorize that she may decide to return to a SNF, she was most recently at [facility]. [facility] - Phone - [phone] Fax - [phone] 08/03/20 20:46 CT Discharge Planning Mikki Segura Comment CM spoke with patient today she was able to converse with CM. Patient stated that she thinks that she can discharge to her home tomorrow. Patient up ambulating in [place] independently. 08/03/20 1:37 CT Discharge Planning Mikki Segura Comment CM attempted to speak with patient regarding discharge planning. Patient has a history of CVA and has expressive aphasia. She was able to answer a few questions that CM asked regarding discharge planning. She was able to answer yes and no questions appropriately. Patient got very frustrated trying to converse with CM. CM spoke with patients nurse and she stated that she had a friend that was here earlier and had told nurse that she was the patient's friend and POA. She was requesting that patient be potentially discharged [facility] where she worked. CM also had spoken with speech therapist and he stated that he was familiar with patient and that [facility] last month. He stated that she had discharged home with a friend /POA. CM will need to speak with POA and patient to make sure everyone agrees to the discharge plan. CM will continue to follow and assist as needed with discharge planning/ needs. DCP Focus Questions & Answers DCP Screen High Risk Factors: Poor social support DCP Evaluation Patient's current cognitive status: Intermittently confused / memory changes Patient gives permission to discuss discharge RAMIRO HERNANDEZ -IVY- [phone] plans with: (name, relationship and number) Patient's ability to cope with chronic illness d. No chronic illness Functional screen assessment: Basic needs can adequately be met by self Living Arrangements: Home Alone with Support Living arrangements comments: LIVES ALONE ? WITH A FRIEND Baseline cognitive status: Intermittently confused / memory changes Facility / Agency name and contact information PATIENT WAS AT THE [facility] UNTIL 2-3 from Question 3 (if applicable): WKS AGO Would patient like to participate in any Care Not applicable Coordination programs (if applicable): Mental health screen: No mental health history DCP Re-evaluation Would patient like to participate in any Care Not applicable Coordination programs (if applicable): [facility] SAE BARBOSA MR#: [id number] /Age/Sex/Fxdsdq77-Dnz-32 //F /S Attending Physician Name: CINDY VALLEJO [id number] Patient Account:[id number] [facility] Page -1 of 1 All edits/amendments must be made on the electronic document DICTATION DATE: 08/04/20 103 SUPERVISOR WEBBING: KATELYN 08/04/20 103 RPT#: [id number] DC DATE: STATUS: ADM IN [facility] [address] [place] [address] END OF REPORT
[2020-08-04 11:23] VITALS: BP 117/46
[2020-08-04 14:00] VITALS: BP 118/51
--- NOTE | 2020-08-04 15:17 | NUR ---
PATIENT ABLE TO GET UP TO BEDSIDE BY HERSELF AND STAND WITH CGA. PATIENT WALKED IN JAIMES 60 FEET WITH MIN-CGA WITH WALKER.
[2020-08-04] MEDS ORDERED: WARFARIN SODIU7.5 MG PO (17:38)
[2020-08-04 20:00] VITALS: BP 127/67
--- NOTE | 2020-08-05 04:33 | NUR ---
I have reviewed this patient and I concur with the Shift Assessment completed by the Licensed Practical Nurse today this shift.
[2020-08-05 05:05] LABS: BASOPHILS 0.2 % (0-2); EOSINOPHILS 3.1 % (0-7); HEMATOCRIT 40.8 % (36.0-48.0); HEMOGLOBIN 12.7 g/dL (12-16); IMMATURE GRANULOCYTES 0.2 % (0-5); LYMPHOCYTE ABS# 2.18 10x3/uL (1.18-3.74); LYMPHOCYTES 15.9 % (15-50); MCH 27.4 pg (26.0-34.0); MCHC 31.1 g/dL (31.0-37.0); MCV 87.9 fL (80.0-100.0); MEAN PLATELET VOLUME 11.7 fL (7.4-10.4); MONOCYTES 15.5 % (2-11); NEUTROPHIL ABS# 8.93 10x3/uL (1.56-6.13); NEUTROPHILS 65.1 % (40-80); PLATELET COUNT 323 10x3/uL (130-400); RBC 4.64 10x6/uL (4.00-5.40); WBC 13.7 10x3/uL (4.8-10.8)
[2020-08-05 05:16] LABS: PROTIME 22.3 SECONDS (11.6-15.0)
[2020-08-05 05:19] LABS: INR 2.16 (0.85-1.17)
[2020-08-05 05:22] LABS: ANION GAP 15.6 mmol/L (8-16); CALCIUM 9.1 mg/dL (8.5-10.1); CARBON DIOXIDE 22.5 mmol/L (21.0-32.0); POTASSIUM - SERUM 4.1 mmol/L (3.5-5.1)
--- NOTE | 2020-08-05 07:00 | NUR ---
PT LYING IN BED. RESP EVEN AND UNLABORED. AAOX4. PT HAS A HARD TIME FORMING WORDS AND GETS FRUSTRATED AT TIMES. AAOX4. PT DENIES NEEDS AT THIS TIME. CLIR. BED IN LOWEST POSITION. SIDE RAILS X2
[2020-08-05 07:19] VITALS: BP 129/26; BP 143/73
--- NOTE | 2020-08-05 13:21 | NUR ---
PATIENT WALKED 250 FEET WITH CGA.
--- NOTE | 2020-08-05 13:22 | MORECARE ---
CASE MANAGEMENT DISCHARGE SUMMARY PATIENT: SAE BARBOSA SAMUEL UNIT: [id number] ADM DATE: 07/31/20 AGE: 60 : 62 SEX: F ROOM/BED: D.9327 AUTHOR: SHALONDA,DOC PHYSICIAN: REFERRING PHYSICIAN: FABIAN VIERA MD DATE OF SERVICE: 08/05/20 Case Management Discharge Planning Summary CT Patient Name: SAE BARBOSA Attending MD : FABIAN OLIVER Medical Record: [id number] Encounter : [id number] Facility : [address] [place] [address] Medical Admission Date : 112:00 Center Discharge Date : [address] [place] [address] Date of : DC Plan ID : [id number] Age/Sex/Martia : 60/ F/S Printed on : 08/05/20 13:21 CT DCP Review Details Anticipated D/C: Expected LOS : Case Status : INITIATED - Initial Reviewe: [id number] - Mikki Segura Initial Review: 07/31/2020 Planned Disposi: - Final Discharge: - Final Reviewer : : Final Review : Comments CT Entered Date Type Reviewer 08/04/20 10:22 CT Discharge Planning Aurora Jaquez Comment CM spoke with patient and then called her POA, Ramiro Wilhelm. They are both in agreement to have a referral to [facility] [place] in [place]. I called [facility] and spoke with Myrtle and faxed clinical. Patient states if insurance does not authorize that she may decide to return to a SNF, she was most recently at [facility]. [facility] - Phone - [phone] Fax - [phone] 08/03/20 20:46 CT Discharge Planning Mikki Segura Comment CM spoke with patient today she was able to converse with CM. Patient stated that she thinks that she can discharge to her home tomorrow. Patient up ambulating in [place] independently. 08/03/20 1:37 CT Discharge Planning Mikki Segura Comment CM attempted to speak with patient regarding discharge planning. Patient has a history of CVA and has expressive aphasia. She was able to answer a few questions that CM asked regarding discharge planning. She was able to answer yes and no questions appropriately. Patient got very frustrated trying to converse with CM. CM spoke with patients nurse and she stated that she had a friend that was here earlier and had told nurse that she was the patient's friend and POA. She was requesting that patient be potentially [facility]. CM also had spoken with speech therapist and he stated that he was familiar with patient and that she [facility]. He stated that she had discharged home with a friend /POA. CM will need to speak with POA and patient to make sure everyone agrees to the discharge plan. CM will continue to follow and assist as needed with discharge planning/ needs. DCP Focus Questions & Answers DCP Screen High Risk Factors: Poor social support DCP Evaluation Patient's current cognitive status: Intermittently confused / memory changes Patient gives permission to discuss discharge RAMIRO DIHLLON- [phone] plans with: (name, relationship and number) Patient's ability to cope with chronic illness d. No chronic illness Functional screen assessment: Basic needs can adequately be met by self Living Arrangements: Home Alone with Support Living arrangements comments: LIVES ALONE ? WITH A FRIEND Baseline cognitive status: Intermittently confused / memory changes Facility / Agency name and contact information PATIENT WAS AT THE [facility] UNTIL 2-3 from Question 3 (if applicable): WKS AGO Would patient like to participate in any Care Not applicable Coordination programs (if applicable): Mental health screen: No mental health history DCP Re-evaluation Would patient like to participate in any Care Not applicable Coordination programs (if applicable): [facility] SAE BARBOSA MR#: [id number] /Age/Sex/Yexios31-Mey-42 /60/F /S Attending Physician Name: MAXIMILIANO [id number] Patient Account:[id number] [facility] Page -1 of 1 All edits/amendments must be made on the electronic document DICTATION DATE: 08/05/20 132 BRUSH MAKER MACHINE: KATELYN 08/05/20 1321 RPT#: [id number] DC DATE: STATUS: ADM IN [facility] [address] [place] [address] END OF REPORT
--- NOTE | 2020-08-05 15:43 | NUR ---
OT NOTE: PT COMPLETED ADL MOB WITH CGA. PT COMPLETED SIMPLE UB HYGIENE WITH SETUP. PT COMPLETED HAIR GROOMING WITH SETUP. [phone] THANK YOU,DOMI ZARAGOZA
--- NOTE | 2020-08-05 18:10 | MORECARE ---
CASE MANAGEMENT DISCHARGE SUMMARY PATIENT: SAE BARBOSA UNIT: [id number] ADM DATE: 07/31/20 AGE: 60 : 62 SEX: F ROOM/BED: D.3132 AUTHOR: SHALONDA,DOC PHYSICIAN: REFERRING PHYSICIAN: FABIAN VIERA MD DATE OF SERVICE: 08/05/20 Case Management Discharge Planning Summary CT Patient Name: SAE BARBOSA Attending MD : FABIAN OLIVER Medical Record: [id number] Encounter : [id number] Facility : [address] [place] [address] Medical Admission Date : 112:00 Center Discharge Date : 08/05/[address] [place] [address] Date of : DC Plan ID : [id number] Age/Sex/Martia : 60/ F/S Printed on : 08/05/20 18:09 CT DCP Review Details Anticipated D/C: Expected LOS : Case Status : INITIATED - Initial Reviewe: [id number] - Mikki Segura Initial Review: 07/31/2020 Planned Disposi: - Final Discharge: - Final Reviewer : : Final Review : Comments CT Entered Date Type Reviewer 08/05/20 17:40 CT Discharge Planning Mikki Segura Comment RENEA spoke with Ramiro Hernandez patient's POA she stated that she was wanting patient to go BIR in . CM explained that the patient has been up ambulating independently in [place] walking circles around nurses station. Patient will not qualify for inpatient rehab. Ramiro explained that she needs help with sliding scale teaching. RENEA stated that we could arrange [facility] for her and that she already has discharge orders for today. Ramiro agreed to [facility] CM called and set up patient with [facility] and they will admit patient on Saturday. CM will continue to follow and assist as needed with discharge planning needs. IMM signed per patient 08/05/20 @ 1020. 08/04/20 10:22 CT Discharge Planning Aurora Jaquez Comment RENEA spoke with patient and then called her POA, Ramiro Hernandez. They are both in agreement to have a referral [facility] [place] in [place]. I called [facility] and spoke with Myrtle and faxed clinical. Patient states if insurance does not authorize that she may decide to return to a SNF, she was most recently at [facility]. [facility] - Phone - [phone] Fax - [phone] 08/03/20 20:46 CT Discharge Planning Mikki Segura Comment CM spoke with patient today she was able to converse with CM. Patient stated that she thinks that she can discharge to her home tomorrow. Patient up ambulating in [place] independently. 08/03/20 1:37 CT Discharge Planning Mikki Segura Comment CM attempted to speak with patient regarding discharge planning. Patient has a history of CVA and has expressive aphasia. She was able to answer a few questions that CM asked regarding discharge planning. She was able to answer yes and no questions appropriately. Patient got very frustrated trying to converse with CM. CM spoke with patients nurse and she stated that she had a friend that was here earlier and had told nurse that she was the patient's friend and POA. She was requesting that patient be potentially discharged to [facility] where she worked. CM also had spoken with speech therapist and he stated that he was familiar with patient and that she had just [facility] last month. He stated that she had discharged home with a friend /POA. CM will need to speak with POA and patient to make sure everyone agrees to the discharge plan. CM will continue to follow and assist as needed with discharge planning/ needs. DCP Focus Questions & Answers DCP Screen High Risk Factors: Poor social support DCP Evaluation Patient's current cognitive status: Intermittently confused / memory changes Patient gives permission to discuss discharge RAMIRO HERNANDEZ -FRIEND- [phone] plans with: (name, relationship and number) Patient's ability to cope with chronic illness d. No chronic illness Functional screen assessment: Basic needs can adequately be met by self Living Arrangements: Home Alone with Support Living arrangements comments: LIVES ALONE ? WITH A FRIEND Baseline cognitive status: Intermittently confused / memory changes Facility / Agency name and contact information PATIENT WAS AT THE [facility] UNTIL 2-3 from Question 3 (if applicable): WKS AGO Would patient like to participate in any Care Not applicable Coordination programs (if applicable): Mental health screen: No mental health history DCP Re-evaluation Would patient like to participate in any Care Not applicable Coordination programs (if applicable): [facility] SAE BARBOSA MR#: [id number] /Age/Sex/Ngdyyo35-New-06 /60/F /S Attending Physician Name: MAXIMILIANO [id number] Patient Account:[id number] [facility] Page -1 of 1 All edits/amendments must be made on the electronic document DICTATION DATE: 08/05/201808 GAS ENGINE OPERATOR GENERATORS: KATELYN 08/05/201808 RPT#: [id number] DC DATE:08/05/20 STATUS: DIS IN [facility] [address] [place] [address] END OF REPORT
--- NOTE | 2020-08-05 20:13 | MORECARE ---
CASE MANAGEMENT DISCHARGE SUMMARY PATIENT: SAE BARBOSA UNIT: [id number] ADM DATE: 07/31/20 AGE: 60 : 62 SEX: F ROOM/BED: D.2115 AUTHOR: SHALONDA,DOC PHYSICIAN: REFERRING PHYSICIAN: FABIAN VIERA MD DATE OF SERVICE: 08/05/20 Case Management Discharge Planning Summary CT Patient Name: SAE BARBOSA Attending MD : FABIAN OLIVER Medical Record: [id number] Encounter : [id number] Facility : [address] [place] [address] Medical Admission Date : 112:00 Center Discharge Date : 08/05/[address] [place] [address] Date of : DC Plan ID : [id number] Age/Sex/Martia : 60/ F/S Printed on : 08/05/20 20:11 CT DCP Review Details Anticipated D/C: Expected LOS : Case Status : INITIATED - Initial Reviewe: [id number] - Mikki Segura Initial Review: 07/31/2020 Planned Disposi: - Final Discharge: - Final Reviewer : : Final Review : Comments CT Entered Date Type Reviewer 08/05/20 17:40 CT Discharge Planning Mikki Segura Comment RENEA spoke with Ramiro Hernandez patient's POA she stated that she was wanting patient to go BIR in . CM explained that the patient has been up ambulating independently in [place] walking circles around nurses station. Patient will not qualify for inpatient rehab. Ramiro explained that she needs help with sliding scale teaching. RENEA stated that we could arrange [facility] for her and that she already has discharge orders for today. Ramiro agreed to [facility] CM called and set up patient with [facility] and they will admit patient on Saturday. CM will continue to follow and assist as needed with discharge planning needs. IMM signed per patient 08/05/20 @ 1020. 08/04/20 10:22 CT Discharge Planning Aurora Jaquez Comment RENEA spoke with patient and then called her POA, Ramiro Hernandez. They are both in agreement to have a referral [facility] in [place]. I called [facility] and spoke with Myrtle and faxed clinical. Patient states if insurance does not authorize that she may decide to return to a SNF, she was most recently at [facility]. [facility] - Phone - [phone] Fax - [phone] 08/03/20 20:46 CT Discharge Planning Mikki Segura Comment CM spoke with patient today she was able to converse with CM. Patient stated that she thinks that she can discharge to her home tomorrow. Patient up ambulating in [place] independently. 08/03/20 1:37 CT Discharge Planning Mikki Segura Comment CM attempted to speak with patient regarding discharge planning. Patient has a history of CVA and has expressive aphasia. She was able to answer a few questions that CM asked regarding discharge planning. She was able to answer yes and no questions appropriately. Patient got very frustrated trying to converse with CM. CM spoke with patients nurse and she stated that she had a friend that was here earlier and had told nurse that she was the patient's friend and POA. She was requesting that patient be potentially discharged to [facility] where she worked. CM also had spoken with speech therapist and he stated that he was familiar with patient and that [facility]. He stated that she had discharged home with a friend /POA. CM will need to speak with POA and patient to make sure everyone agrees to the discharge plan. CM will continue to follow and assist as needed with discharge planning/ needs. DCP Focus Questions & Answers DCP Screen High Risk Factors: Poor social support DCP Evaluation Patient's current cognitive status: Intermittently confused / memory changes Patient gives permission to discuss discharge RAMIRO HERNANDEZ -FRIEND- [phone] plans with: (name, relationship and number) Patient's ability to cope with chronic illness d. No chronic illness Functional screen assessment: Basic needs can adequately be met by self Living Arrangements: Home Alone with Support Living arrangements comments: LIVES ALONE ? WITH A FRIEND Baseline cognitive status: Intermittently confused / memory changes Facility / Agency name and contact information PATIENT WAS AT THE [facility] UNTIL 2-3 from Question 3 (if applicable): WKS AGO Would patient like to participate in any Care Not applicable Coordination programs (if applicable): Mental health screen: No mental health history DCP Re-evaluation Would patient like to participate in any Care Not applicable Coordination programs (if applicable): [facility] SAE BARBOSA MR#: [id number] /Age/Sex/Rmtgkw42-Udv-72 /60/F /S Attending Physician Name: MAXIMILIANO [id number] Patient Account:[id number] [facility] Page -1 of 1 All edits/amendments must be made on the electronic document DICTATION DATE: 08/05/202010 AN/SQQ 89(V)15 SONAR SYSTEM JOURNEYMAN: KATELYN 08/05/202010 RPT#: [id number] DC DATE:08/05/20 STATUS: DIS IN [facility] [address] [place] [address] END OF REPORT
== END 2020-08-05 15:45 | disposition home health service (06) | DRG 897 ==
LOC: D.ER 09:41 → D.M2 12:00
PROVIDERS: Family Medicine; ADMIT Family Medicine; ATTEND Family Medicine
DX: F15.129 Other stimulant abuse with intoxication, unspecified (principal); N17.9 Acute kidney failure, unspecified; I13.0 Hypertensive heart and chronic kidney disease with heart failure and stage 1 through stage 4 chronic kidney disease, or unspecified chronic kidney disease; I50.42 Chronic combined systolic (congestive) and diastolic (congestive) heart failure; F11.129 Opioid abuse with intoxication, unspecified; F10.129 Alcohol abuse with intoxication, unspecified; I48.91 Unspecified atrial fibrillation; E11.9 Type 2 diabetes mellitus without complications; E03.9 Hypothyroidism, unspecified; E11.22 Type 2 diabetes mellitus with diabetic chronic kidney disease; N18.9 Chronic kidney disease, unspecified; Z86.73 Personal history of transient ischemic attack (TIA), and cerebral infarction without residual deficits

== ENCOUNTER 2020-09-10 17:53 | Emergency (ER) | payer MEDICARE, MEDICAID ==
[~2020-09-10] VITALS: Ht 171.4 cm; Wt 77.3 kg
[~2020-09-10 17:53] MED LIST changes: +DILTIAZEM 24HR180 M4 PO; +GABAPENTIN300 MG PO; +GLIMEPIRIDE2 MG PO; +HUMALOG 30100 UNITS/ SC; +HYDROCODON-ACE1 EA10 PO; +IBUPROFEN200 MG PO; +LEVO-T25 MCG PO; +LIPITOR80 MG PO; +NICODERM CQ1 EAC3 TOPICAL; +PROZAC40 MG PO; +ROPINIROLE HCL4 M1 PO
[2020-09-10 18:00] VITALS: Ht 171.4 cm; Wt 77.3 kg
[2020-09-10] MEDS ORDERED: MEDROL DOSE PACK4 MG PO (18:13)
[2020-09-10 18:22] VITALS: BP 154/6
[2020-09-10 18:35] LABS: BACTERIA MOD HPF (NONE SEEN); BILIRUBIN NEGATIVE (NEGATIVE); KETONE NEGATIVE (NEGATIVE); NITRITE POSITIVE (NEGATIVE); SQUAMOUS EPITHELIAL 0-5 HPF (0-4); UROBILINOGEN NORMAL mg/dL (< 2)
[2020-09-10] MEDS ORDERED: MACROBID100 MG PO (18:45)
[2020-09-10] MEDS ORDERED: LEVOFLOXACIN500 MG PO (18:45)
== END 2020-09-10 19:15 | disposition home or self-care (01) ==
LOC: D.ER 17:53
PROVIDERS: Family Medicine
DX: M79.10 Myalgia, unspecified site (principal); M54.5 Low back pain; N39.0 Urinary tract infection, site not specified; E11.40 Type 2 diabetes mellitus with diabetic neuropathy, unspecified; I11.0 Hypertensive heart disease with heart failure; I50.9 Heart failure, unspecified; J44.9 Chronic obstructive pulmonary disease, unspecified; K21.9 Gastro-esophageal reflux disease without esophagitis; Z72.0 Tobacco use; Z79.4 Long term (current) use of insulin

== ENCOUNTER 2020-09-13 08:47 | Observation (INO) | payer MEDICARE, MEDICAID ==
[2020-09-13] VITALS (8 sets, daily range): BP systolic 102–172; BP diastolic 42–85; BMI 24.7
[~2020-09-13] VITALS: Ht 171.4 cm; Wt 72.6 kg
[~2020-09-13 08:47] MED LIST changes: +MACROBID100 MG PO
[2020-09-13 10:15] LABS: HEMATOCRIT 37.6 % (36.0-48.0); HEMOGLOBIN 12.2 g/dL (12-16); LYMPHOCYTE ABS# 2.71 10x3/uL (1.18-3.74); MCH 28.6 pg (26.0-34.0); MCHC 32.4 g/dL (31.0-37.0); MCV 88.3 fL (80.0-100.0); MEAN PLATELET VOLUME 11.6 fL (7.4-10.4); NEUTROPHIL ABS# 16.95 10x3/uL (1.56-6.13); PLATELET COUNT 333 10x3/uL (130-400); RBC 4.26 10x6/uL (4.00-5.40); RDW 19.5 % (11.5-14.5); WBC 23.5 10x3/uL (4.8-10.8)
[2020-09-13 10:23] LABS: CALC OSMOLALITY 282 mosm/kg (275-300); CALCIUM 9.3 mg/dL (8.5-10.1); CARBON DIOXIDE 28.9 mmol/L (21.0-32.0); CHLORIDE - SERUM 103 mmol/L (98-107); CREATININE - SERUM 1.2 mg/dL (0.6-1.3); SODIUM 138 mmol/L (136-145); UREA NITROGEN 22 mg/dL (7-18); eGFR NON AFRICAN AMERICAN 49 mL/min (90-120)
[2020-09-13 10:26] LABS: GLUCOSE 163 mg/dL (74-106)
[2020-09-13 10:29] LABS: APTT 43.9 SECONDS (22.8-39.4); INR 3.08 (0.85-1.17); PROTIME 29.5 SECONDS (11.6-15.0)
[2020-09-13 10:40] LABS: ALBUMIN 3.1 g/dL (3.4-5.0); ALKALINE PHOSPHATASE 129 U/L (30-120); ALT (SGPT) 58 U/L (10-68); BILIRUBIN - TOTAL 0.35 mg/dL (0.2-1.3); CKMB 1.4 U/L (0.0-3.6); CREATINE KINASE 88 UL (21-215); EOSINOPHILS 2 % (0-7); LYMPHOCYTES 14 % (15-50); MONOCYTES 10 % (2-11); NEUTROPHILS 72 % (40-80); PLATELET ESTIMATE NORMAL; PRO BNP 3120 pg/mL (0-125); PROTEIN - SERUM 7.6 g/dL (6.4-8.2); TROPONIN-I 0.047 ng/mL (0.000-0.060)
[2020-09-13 10:53] LABS: KETONE NEGATIVE (NEGATIVE); NITRITE POSITIVE (NEGATIVE); UROBILINOGEN NORMAL mg/dL (< 2)
[2020-09-13 10:54] LABS: BILIRUBIN NEGATIVE (NEGATIVE)
[2020-09-13 11:03] LABS: BACTERIA MODERATE HPF (NONE SEEN); SQUAMOUS EPITHELIAL 0-5 HPF (0-4); WHITE CELLS - URINE >50 HPF (0-4)
--- NOTE | 2020-09-13 14:16 | NUR ---
ARRIVE TO ROOM VIA WHEELCHAIR FROM ER. AMBULATES TO BED ASSISTED WITH CANE FROM HOME. SLOW TO RESPOND RESULT FROM OLD CVA. UNABLE TO COMPLETE MED REC. CALL PAROLE DIRECTOR LEAVE MESSAGE FOR MED REC. CONTINUE PLAN OF CARE AND SAFETY PRECAUTIONS. I.S. EDUCATION PROVIDED. REFUSE SCDs.
[2020-09-13] MEDS ORDERED: XANAX0.5 MG PO (19:30)
[2020-09-13] MEDS ORDERED: NEURONTIN 300300 MG PO (19:31)
--- NOTE | 2020-09-13 21:20 | NUR ---
REPORT RECEIVED. PT A&O, RESTING IN BED. NO S/S OF DISTRESS OBSERVED. RR EVEN & UNLABORED ON RA. IV ACCESS R CHEST INFUSAPORT SL, SWAB CAPS IN USE. CAFIB 99 ON TELE. BED LOCKED AND LOWERED, CL IN REACH. ASSESSMENT COMPLETE. WILL CONT POC.
[2020-09-14 03:05] VITALS: BP 98/53
[2020-09-14 05:57] VITALS: BP 126/44
[2020-09-14 07:01] LABS: BASOPHILS 0.2 % (0-2); EOSINOPHILS 3.1 % (0-7); HEMATOCRIT 35.7 % (36.0-48.0); HEMOGLOBIN 11.5 g/dL (12-16); IMMATURE GRANULOCYTES 0.5 % (0-5); LYMPHOCYTE ABS# 2.57 10x3/uL (1.18-3.74); LYMPHOCYTES 17.1 % (15-50); MCH 28.1 pg (26.0-34.0); MCHC 32.2 g/dL (31.0-37.0); MCV 87.3 fL (80.0-100.0); MEAN PLATELET VOLUME 11.9 fL (7.4-10.4); MONOCYTES 17.3 % (2-11); NEUTROPHIL ABS# 9.33 10x3/uL (1.56-6.13); NEUTROPHILS 61.8 % (40-80); PLATELET COUNT 332 10x3/uL (130-400); RBC 4.09 10x6/uL (4.00-5.40); RDW 19.3 % (11.5-14.5); WBC 15.1 10x3/uL (4.8-10.8)
[2020-09-14 07:10] LABS: INR 3.17 (0.85-1.17); PROTIME 30.3 SECONDS (11.6-15.0)
[2020-09-14 07:19] LABS: ANION GAP 8.5 mmol/L (8-16); CALCIUM 9.2 mg/dL (8.5-10.1); CARBON DIOXIDE 29.2 mmol/L (21.0-32.0); CREATININE - SERUM 1.2 mg/dL (0.6-1.3); MAGNESIUM - SERUM 2.2 mg/dL (1.8-2.4); PHOSPHOROUS 3.1 mg/dL (2.5-4.9); POTASSIUM - SERUM 3.7 mmol/L (3.5-5.1)
--- NOTE | 2020-09-14 07:36 | NUR ---
REPORT RECEIVED. PATIENT IS AAOX4, UP IN ROOM. NO S/S OF DISTRESS OBSERVED. RR EVEN AND UNLABORED ON ROOM AIR. INFUSAPORT TO RT CHEST ACCESSED, DRSG C/D/I. PATIENT DENIES NEEDS AT THIS TIME. CL IN REACH, BED LOCKED AND LOWERED. WILL CPOC.
[2020-09-14 08:00] VITALS: BP 116/56
--- NOTE | 2020-09-14 08:58 | HP ---
PATIENT: SAE BARBOSA MEDICAL RECORD: [id number] ACCOUNT: [id number] LOCATION:[address] : 62 ADMISSION DATE: 09/13/20 PCP: FABIAN VIERA HISTORY AND PHYSICAL EXAMINATION DATE OF ADMISSION: 09/13/2020 CHIEF COMPLAINT: Back pain, UTI, swelling and shortness of breath. HISTORY OF PRESENT ILLNESS: This is a 60-year-old female with multiple medical problems, followed by Dr. Viera. She was seen at [facility] on 09/10 for low back pain, found to have a UTI, was discharged home with Levaquin and Macrobid, which were sent to her pharmacy. Unfortunately, the patient and caregiver did not look at the paperwork to see that this medicine was automatically sent to the pharmacy and because they did not get a prescription handed to them, they did not realize that the prescriptions had been electronically sent, so she did not get her antibiotics. She comes back today with increased swelling in her lower extremities, shortness of breath. Her white count is 23,000. Urine is definitely infected and she is admitted. PAST MEDICAL HISTORY: She had a stroke few months ago and has expressive aphasia. She has a history of drug use. She has anxiety, depression, arthritis, diabetes on insulin, asthma, AFib/flutter, CHF, COPD, hypothyroidism, hypertension, hyperlipidemia, recently admitted to the inpatient psych unit at [place] with delirium and psychosis. PAST SURGICAL HISTORY: Cholecystectomy, hysterectomy, mitral valve replaced in 2005 and a repeat in 2007. She has had a pacemaker, a port placement, bilateral tubal ligation and splenectomy. ALLERGIES: PENICILLIN AND ROCEPHIN. SOCIAL HISTORY: She lives with a caregiver. HOME MEDICATIONS: Include Zyprexa 5 mg at bedtime, Lantus 30 units at bedtime, Xanax 0.5 up to t.i.d. p.r.n., diltiazem CD 180 once a day, Pepcid 40 mg once a day, Prozac 40 mg once a day, [place] 10 mg 1 p.o. q.4 hours p.r.n. pain, levothyroxine 25 mcg, metoprolol XL 100 once a day, simvastatin 40 mg once a day, Aldactone 25 mg once a day, warfarin 7.5 mg once a day, gabapentin 300 mg t.i.d., Advair twice a day, sotalol 80 mg twice a day. FAMILY HISTORY: Mother is . She had heart disease, hypertension and cancer. Father of tuberculosis. HABITS: The patient continues to smoke. Denies alcohol use. Admits to drug use. REVIEW OF SYSTEMS: GENERAL: No major weight changes. HEENT: No particular sinus or allergy problems. RESPIRATORY: Has history of asthma. CARDIAC: Has history of AFib/flutter, which has been controlled. GASTROINTESTINAL: She has had heartburn. GENITOURINARY: No significant problems there. MUSCULOSKELETAL: No significant arthritis. HISTORY AND PHYSICAL [id number] SAE BARBOSA PSYCHIATRIC: Has anxiety, depression, history of delirium, psychosis. PHYSICAL EXAMINATION: VITAL SIGNS: Temperature 98.1, pulse 76, respirations 18, blood pressure 121/57, O2 sat 95%. NEUROLOGIC: She is sleeping and easily awakened. She has aphasia and has difficulty finding the right words to say. HEENT: Unremarkable. NECK: Supple. No JVD or bruit. HEART: Regular rate and rhythm. LUNGS: Clear. ABDOMEN: Soft, flat, nontender. EXTREMITIES: No edema. LABORATORY DATA: CBC with a white count of 23,500, hemoglobin 12.2, hematocrit 37.6. Sodium 138, potassium 4.0, chloride 103, CO2 of 28.9, BUN 22, creatinine 1.2, glucose 163, calcium 9.3. Liver functions are okay. INR 3.08. proBNP 3120. Urine yellow, cloudy, 1+ protein, 1+ blood, positive nitrite, 1+ leukocyte esterase, 10-25 red blood cells, greater than 50 white blood cells, 0-5 epithelial cells and moderate bacteria. DIAGNOSTIC STUDIES: Chest x-ray shows a questionable mild CHF. There are sternotomy wires in the midline. There is a valve prosthesis seen and pacemaker on the left side and Infusaport on the right side. ASSESSMENT: 1. Urinary tract infection with elevated white count of 23,500. 2. Expressive aphasia due to cerebrovascular accident. 3. History of drug use. 4. Anxiety and delirium. PLAN: We will admit. Urine culture has been ordered. She is started on Merrem. She is given IV Lasix. Other tests or procedures as warranted. TRANSINT:[id number] Voice Confirmation ID: [id number] DOCUMENT ID: [id number] DONIS PRIDE MD at 0858 CC: [id number] DICTATION DATE: 09/13/201958 SUPERVISOR SAWMILL: 09/13/202014 ADM IN [facility] [address] [id number]
[2020-09-14 12:19] VITALS: BP 98/57
[2020-09-14 13:28] VITALS: Ht 171.4 cm; Wt 72.6 kg
--- NOTE | 2020-09-14 13:56 | NUR ---
PATIENT C/O PAIN AND APPEARS ANXIOUS. EXPLAINED TO PATIENT SHE CAN HAVE THE PRN NORCO @ [id number] AND OFFERED HER PRN XANAX. ADMINISTERED PRN XANAX PER ORDER.
--- NOTE | 2020-09-14 14:50 | NUR ---
PATIENT C/O BACK PAIN / ADMINISTERED PRN NORCO PER ORDERS.
[2020-09-14 16:07] VITALS: BP 111/55
--- NOTE | 2020-09-14 19:15 | NUR ---
REPORT RECEIVED. PT A&O, UP IN BED WATCHING TV. NO S/S OF DISTRESS OBSERVED. RR EVEN & UNLABORED ON RA. R CHEST INFUSAPORT INFUSING MERREM OVER 30MINS. 77 PACED ON TELE. BED LOCKED AND LOWERED, CL IN REACH. ASSESSMENT COMPLETE. WILL CONT POC.
[2020-09-14 21:36] VITALS: BP 117/47
[2020-09-15 01:37] VITALS: BP 94/45
[2020-09-15 04:49] VITALS: BP 118/45
[2020-09-15 06:38] LABS: HEMATOCRIT 36.4 % (36.0-48.0); HEMOGLOBIN 11.5 g/dL (12-16); LYMPHOCYTE ABS# 2.55 10x3/uL (1.18-3.74); MCH 27.8 pg (26.0-34.0); MCHC 31.6 g/dL (31.0-37.0); MCV 87.9 fL (80.0-100.0); MEAN PLATELET VOLUME 11.4 fL (7.4-10.4); NEUTROPHIL ABS# 6.23 10x3/uL (1.56-6.13); PLATELET COUNT 335 10x3/uL (130-400); RBC 4.14 10x6/uL (4.00-5.40); RDW 19.1 % (11.5-14.5); WBC 11.9 10x3/uL (4.8-10.8)
[2020-09-15 06:47] LABS: ANION GAP 8.8 mmol/L (8-16); CARBON DIOXIDE 27.8 mmol/L (21.0-32.0)
[2020-09-15 06:48] LABS: POTASSIUM - SERUM 4.6 mmol/L (3.5-5.1)
--- NOTE | 2020-09-15 06:50 | NUR ---
RECIEVED BED SIDE REPORT. PATIENT RESTING IN BED, NO CURRENT PAIN OR DISTRESS VOICED. PATIENT HAS RIGHT CHEST PORT, CONTINUES MEDICATION FOR UTI MERROM. UP AT [facility]
[2020-09-15 07:03] LABS: INR 2.76 (0.85-1.17); PROTIME 27.1 SECONDS (11.6-15.0)
[2020-09-15 08:00] VITALS: BP 108/52
--- NOTE | 2020-09-15 10:48 | NUR ---
PATIENT AWAKE ALERT AND ORIENTED. NO CURRENT PAIN OR DISTRESS VERBALIZED. PATIENT HAS SLOW, SLURRED SPEECH AT TIMES R/T STROKE. RESP EVEN AND UNLABORED. LUNG SOUNDS CLEAR. HEART SOUNDS REGULAR RATE AND RYTHYM. RESIDENT RECIEVED DISCHARGE ORDERS, HAS TO AWAIT FAMILY TO LEAVE. R CHEST PORT DRESSING CLEAN DRY AND INTACT.
--- NOTE | 2020-09-15 13:10 | NUR ---
PATIENT DISCHARGED HOME WITH POA IN FAMILY VEHICLE. DISCHARGE PAPERWORK DISCUSSED WITH POA.
[2020-09-15 13:32] LABS: EOSINOPHILS 1 % (0-7); LYMPHOCYTES 20 % (15-50); MONOCYTES 15 % (2-11); NEUTROPHILS 63 % (40-80)
[2020-09-15 13:33] LABS: PLATELET ESTIMATE NORMAL
== END 2020-09-15 13:13 | disposition home or self-care (01) ==
LOC: D.ER 08:47 → D.M2 12:30 → OBSVTIME 12:30 → D.M2 12:30
PROVIDERS: Family Medicine; ADMIT Family Medicine; ATTEND Family Medicine
DX: N39.0 Urinary tract infection, site not specified (principal); R06.02 Shortness of breath; F41.9 Anxiety disorder, unspecified; E11.9 Type 2 diabetes mellitus without complications; J44.9 Chronic obstructive pulmonary disease, unspecified; R10.9 Unspecified abdominal pain; M54.5 Low back pain; R47.01 Aphasia; D72.829 Elevated white blood cell count, unspecified; Z79.4 Long term (current) use of insulin; Z72.0 Tobacco use

== ENCOUNTER 2020-09-24 15:35 | Emergency (ER) | payer MEDICARE, MEDICAID ==
[~2020-09-24] VITALS: Ht 171.4 cm; Wt 84.1 kg
[~2020-09-24 15:35] MED LIST changes: +NEURONTIN 300300 MG PO; +XANAX0.5 MG PO
[2020-09-24 15:42] VITALS: Ht 171.4 cm; Wt 84.1 kg
[2020-09-24 16:43] LABS: BASOPHILS 0.8 % (0-2); EOSINOPHILS 2.5 % (0-7); HEMATOCRIT 38.9 % (36.0-48.0); HEMOGLOBIN 12.5 g/dL (12-16); LYMPHOCYTES 17.5 % (15-50); MCHC 32.2 g/dL (31.0-37.0); MCV 86.8 fL (80.0-100.0); MONOCYTES 10.4 % (2-11); NEUTROPHILS 68.8 % (40-80); RBC 4.48 10x6/uL (4.00-5.40); RDW 19.1 % (11.5-14.5)
[2020-09-24 16:44] LABS: PLATELET COUNT 264 10x3/uL (130-400)
[2020-09-24 16:55] LABS: CALC OSMOLALITY 281 mosm/kg (275-300); CALCIUM 9.3 mg/dL (8.5-10.1); CARBON DIOXIDE 24.5 mmol/L (21.0-32.0); CHLORIDE - SERUM 101 mmol/L (98-107); CREATININE - SERUM 1.6 mg/dL (0.6-1.3); GLUCOSE 172 mg/dL (74-106); POTASSIUM - SERUM 3.4 mmol/L (3.5-5.1); SODIUM 135 mmol/L (136-145); UREA NITROGEN 36 mg/dL (7-18); eGFR NON AFRICAN AMERICAN 35 mL/min (90-120)
[2020-09-24 16:58] LABS: APTT 26.6 SECONDS (22.8-39.4); INR 1.37 (0.85-1.17); PROTIME 15.6 SECONDS (11.6-15.0)
[2020-09-24 17:12] LABS: BILIRUBIN NEGATIVE (NEGATIVE); KETONE NEGATIVE (NEGATIVE); NITRITE NEGATIVE (NEGATIVE); UROBILINOGEN NORMAL mg/dL (< 2)
[2020-09-24 17:14] LABS: ALBUMIN 3.4 g/dL (3.4-5.0); ALKALINE PHOSPHATASE 107 U/L (30-120); ALT (SGPT) 43 U/L (10-68); BILIRUBIN - TOTAL 0.48 mg/dL (0.2-1.3); CKMB 2.2 U/L (0.0-3.6); CREATINE KINASE 125 UL (21-215); MAGNESIUM - SERUM 1.9 mg/dL (1.8-2.4); PROTEIN - SERUM 7.3 g/dL (6.4-8.2); THYROID STIMULATING HORMONE 1.89 uIU/mL (0.36-3.74); TROPONIN-I < 0.017 ng/mL (0.000-0.060)
[2020-09-24 17:16] LABS: UDS - AMPHET POSITIVE QUAL (NEGATIVE); UDS - BARB NEGATIVE QUAL (NEGATIVE); UDS - BENZO POSITIVE QUAL (NEGATIVE); UDS - COCAINE NEGATIVE QUAL (NEGATIVE); UDS - OPIATE POSITIVE QUAL (NEGATIVE); UDS - PCP NEGATIVE QUAL (NEGATIVE); UDS - THC NEGATIVE QUAL (NEGATIVE)
[2020-09-24 21:18] LABS: SARS-CoV-2 ANTIGEN NEGATIVE- SARS-COV-2 (NEGATIVE)
[2020-09-24 22:45] VITALS: BP 100/53
== END 2020-09-24 22:59 ==
LOC: D.ER 15:35
PROVIDERS: Family Medicine
DX: R41.82 Altered mental status, unspecified (principal); F03.91 Unspecified dementia, unspecified severity, with behavioral disturbance; R45.1 Restlessness and agitation; E86.0 Dehydration; F19.10 Other psychoactive substance abuse, uncomplicated; D72.829 Elevated white blood cell count, unspecified; I11.0 Hypertensive heart disease with heart failure; I50.9 Heart failure, unspecified; Z95.0 Presence of cardiac pacemaker; E11.9 Type 2 diabetes mellitus without complications; J44.9 Chronic obstructive pulmonary disease, unspecified; K21.9 Gastro-esophageal reflux disease without esophagitis; Z72.0 Tobacco use; Z79.4 Long term (current) use of insulin